=== PATIENT | male | born 1965 | race Caucasian/White ===

== ENCOUNTER 2022-04-08 13:20 | Inpatient (IN) ==
[2022-04-08] MEDS ORDERED: cefTRIAXone SODIUM 2,000 MG/70 ML BAG IV STA (14:05)
[2022-04-08] MEDS ORDERED: KETOROLAC TROMETHAMINE 15 MG/ML VIAL IV ONE (14:05)
[2022-04-08] MEDS ORDERED: SODIUM CHLORIDE 0.9% 1000ML 1,000 ML IV SCH (14:07)
--- NOTE | 2022-04-08 14:19 | Emergency Department Note ---
Impression & Plan Cellulitis of right lower extremity, Pain and swelling of right knee ED Provider Note CHIEF COMPLAINT: Right knee pain, redness and swelling HISTORY OF PRESENT ILLNESS: David Javed is a 56 year old male with no significant past medical history who presents to the Emergency Department for evaluation of worsening pain to his right knee with associated redness and swelling which initially started about 1 week ago and has since become worse since yesterday. At the time of onset, the patient first noticed some pain and swelling to his right knee. He denies sustaining any falls or injuries prior to the time of onset and did not notice any overlying wounds. The pain and swelling persisted for about a week before he then developed redness to his anterior knee. The patient did visit the [facility] ED yesterday and they attempted to aspirate his knee several times in multiple different places, however, he states that they were not able to draw any fluid out of it. The patient was thought to have a cellulitic infection and was discharged to home with Keflex. Since then, the patient has taken 5 doses of the Keflex, however, his knee has become much more red, swollen and painful. The redness and swelling has also extended up into his right thigh, down into his linder/calf and ankle. Currently, he rates his discomfort as a 9/10 which worsens with attempts of weight bearing activity. He is also unable to completely extend is knee due to the pain and swelling. He did take Tylenol and ibuprofen with minimal improvement of his symptoms. He does state that he has recently felt chilled but no measured fevers. No chest pain, shortness of breath, palpitations, abdominal pain, nausea, vomiting, or urinary symptoms. He has had diarrhea since starting the diarrhea yesterday. The patient denies history of previous skin or staph infections. REVIEW OF SYSTEMS: 10 systems were reviewed and were negative unless otherwise stated in HPI as above PHYSICAL EXAM: VITALS: Vitals are noted on the nurse's note and reviewed by myself. Vital signs stable. General: Resting in bed, no acute distress HEENT: Normocephalic, atraumatic, PERRL, EOMI, mucous membranes moist, oropharynx clear Neck: Supple, non-tender, ROM intact Resp: Good inspiratory effort on room air, lung sounds clear bilaterally CV: Regular rate and rhythm, normal S1-S2, peripheral pulses palpated Abd: Soft, non-distended, non-tender MSK/Integumentary: With attention to the LLE, moderate edema and erythema overlying the entire knee with lymphangitic erythema tracking into the thigh, down to to the linder/calf and ankle. Warm and tender to palpation. No palpable fluctuance. ROM of the knee limited secondary to pain and swelling. Able to move the toes, sensation and d/p pulse intact. Multiple punctate wounds about the kn ee consistent with recent attempts of arthrocentesis, otherwise no appreciable wounds. No other skin changes or outward signs of trauma, moving all other extremities without apparent pain or difficulty Neuro: Awake, alert and oriented x 3, interacting and answering questions appropriately Differential diagnosis includes musculoskeletal, cellulitis, septic joint, gout, Lyme disease, among others were considered. EMERGENCY DEPARTMENT COURSE: Physical exam and history were performed. Nursing triage notes, EMR, and medication list were personally reviewed. Patient appears to have worsening pain to his right knee with associated redness and swelling which initially started about 1 week ago and has since become worse with extension into his thigh and down into his linder/calf and ankle since yesterday following multiple attempts of arthrocentesis in the [facility] emergency department. He has been taking Keflex since yesterday without improvement of his symptoms. Additional history as described above. See physical exam as noted above. The patient was offered medications. IV access was established and he was given NSS 1 L and Toradol 15 mg. Labs were obtained and reviewed by myself as below. Of note, leukocytosis with a WBC of 15.53. No concern for anemia with hemoglobin 15.2. Electrolytes WNL. Renal indices stable. LFTs nondiagnostic. ESR was elevated at 35 and CRP elevated at 12.06. Lactate not elevated at 1.2. Procalcitonin not elevated at 0.07. Uric acid not elevated at 4.6. Lyme testing was negative. X-ray of the right knee was obtained and reviewed by radiologist myself as below. This did show soft tissue swelling without evidence of underlying bony abnormality. No joint effusion seen. Upon reevaluation, the patient was doing well. His exam findings are concerning for cellulitis with moderate edema and erythema over the knee with lymphangitic streaking tracking into the thigh, down to the linder/calf and ankle. Less concern for gout as his uric acid was not elevated and he does not have history of this. Lyme testing is also negative. Blood cultures were obtained prior to giving Rocephin 2 g and vancomycin 2,250 mg for treatment of the cellulitic infection. It is also possible that he has a septic joint given that multiple attempts were made to perform an arthrocentesis of his right knee while at the [facility] emergency department yesterday. I do feel that he would benefit from continued management in the hospital for additional IV antibiotics and possibly an orthopedic consult for further evaluation. I discussed this with the patient and he agreed with this. I then contacted Dr. De Jesus of the [facility] and she agreed to evaluate the patient. The patient verbalizes understanding agreement with the treatment plan as above. The chart was completed utilizing [employer] Voice Recognition Software. Grammatical errors, random word insertions, pronoun errors, and incomplete sentences are an occasional consequence of this system due to software limitations, ambient noise, and hardware issues. Any formal questions or concerns about the content, text, or information contained within the body of this dictation should be directly addressed to the provider for clarification. Past Med/Surg History Medical History Chronic allergic rhinitis Surgical History H/O vasectomy Family History (Updated 04/08/22 @ 19:37 by Kyrie De Jesus MD) Father Diabetes Heart disease Social History Smoking Status: Never smoker Hx Alcohol Use: Yes Alcohol type: beer Hx Substance Use: No Preferred Language: Maldivian Communication Ability: Effective Continuous Loft Operator Required: No Beliefs That Will Affect Care: None Current Living Situation: Spouse and Family Feels Safe at Home: Yes Assistive Devices: None Allergies Allergies Allergy/AdvReac Type Severity Reaction Status Date / Time aspirin AdvReac Intermediate BLOODY Verified 04/08/22 15:32 NOSES A CHILD Home Meds Home Medications Medication Instructions Recorded Confirmed albuterol sulfate 2.5 mg INHALATION Q6H PRN 04/08/22 04/08/22 cephalexin 500 mg capsule 500 mg PO QID 04/08/22 04/08/22 Results & Data (ED) Vital Signs Vital Signs - 24 hr 04/08/22 13:20 04/08/22 15:20 Temperature 36.4 C L Temperature Source Temporal Artery Scan Pulse Rate 98 H Pulse Rate [Right Finger] 89 Pulse Rhythm [Right Finger] Regular Pulse Strength [Right Finger] Normal Respiratory Rate 16 20 Respiratory Effort / Characteristics Non-Labored Spontaneous Respiratory Depth Normal Blood Pressure 124/78 Blood Pressure [Right Arm] 122/86 Blood Pressure Mean 93 Blood Pressure Mean [Right Arm] 98 Blood Pressure Position Sitting Pulse Oximetry 96 98 Oxygen Delivery Method Room Air Room Air Sepsis Recent Fever Within 48 Hours No Sepsis New/Unexplained Change in Mental Status No Sepsis Action Taken by Nursing No Action Required Laboratory Data Result diagrams: 04/08/22 14:20 04/08/22 14:20 Lab Results 04/08/22 04/08/22 04/08/22 Range/Units 14:20 14:20 14:20 WBC 15.53 H (4.8-10.8) K/uL RBC 4.86 (4.7-6.1) M/uL Hgb 15.2 (14.0-18.0) g/dL Hct 44.5 (42-52) % MCV 91.6 (80-100) fL MCH 31.3 (25-34) pg MCHC 34.2 (32-36) g/dL RDW Std Deviation 42.2 (36.4-46.3) fL RDW Coeff of Manuel 12.6 (11.5-14.5) % Plt Count 232 (130-400) K/uL MPV 11.6 H (7.4-10.4) fL Immature Gran % (Auto) 0.4 % Neut % (Auto) 71.1 % Lymph % (Auto) 11.7 % [place] % (Auto) 15.5 % Eos % (Auto) 1.0 % Baso % (Auto) 0.3 % Neut # (Auto) 11.05 H (1.4-6.5) K/uL Lymph # (Auto) 1.81 (1.2-3.4) K/uL [place] # (Auto) 2.40 H (0.11-0.59) K/uL Eos # (Auto) 0.16 (0-0.5) K/uL Baso # (Auto) 0.05 (0-0.2) K/uL Immature Gran # (Auto) 0.06 H (0.00-0.02) K/uL ESR 35 H (0-20) mm/hr Sodium 137 (136-145) mmol/L Potassium 3.7 (3.5-5.1) mmol/L Chloride 103 (98-107) mmol/L Carbon Dioxide 29 (21-32) mmol/L Anion Gap 5 (3-11) BUN 16 (6-23) mg/dl Creatinine 1.20 (0.6-1.4) mg/dl Est Cr Clr Drug Dosing 74.7 ml/min Est GFR ( Amer) 78.4 ml/min Est GFR (Non-Af Amer) 67.7 ml/min BUN/Creatinine Ratio 13.3 (10-20) Glucose 105 H (70-99(Fasting)) mg/dl Lactate (0.4-2.0) mmol/L Uric Acid (2.6-7.2) mg/dl Calcium 9.3 (8.5-10.1) mg/dl Total Bilirubin 1.0 (0.2-1.0) mg/dl AST 12 L (13-39) U/L ALT 15 (7-52) U/L Alkaline Phosphatase 67 (34-104) U/L C-Reactive Protein 12.06 H (0-0.5) mg/dl Total Protein 7.3 (6.0-8.3) gm/dl Albumin 4.0 (3.4-5.0) gm/dl Globulin 3.3 (2.5-4.0) gm/dl Albumin/Globulin Ratio 1.2 (0.9-2) Procalcitonin (0-0.5) ng/ml Lyme Disease IgG Ab (Negative) Lyme Disease IgM Ab (Negative) 04/08/22 04/08/22 04/08/22 Range/Units 14:20 14:20 14:20 WBC (4.8-10.8) K/uL RBC (4.7-6.1) M/uL Hgb (14.0-18.0) g/dL Hct (42-52) % MCV (80-100) fL MCH (25-34) pg MCHC (32-36) g/dL RDW Std Deviation (36.4-46.3) fL RDW Coeff of Manuel (11.5-14.5) % Plt Count (130-400) K/uL MPV (7.4-10.4) fL Immature Gran % (Auto) % Neut % (Auto) % Lymph % (Auto) % [place] % (Auto) % Eos % (Auto) % Baso % (Auto) % Neut # (Auto) (1.4-6.5) K/uL Lymph # (Auto) (1.2-3.4) K/uL [place] # (Auto) (0.11-0.59) K/uL Eos # (Auto) (0-0.5) K/uL Baso # (Auto) (0-0.2) K/uL Immature Gran # (Auto) (0.00-0.02) K/uL ESR (0-20) mm/hr Sodium (136-145) mmol/L Potassium (3.5-5.1) mmol/L Chloride (98-107) mmol/L Carbon Dioxide (21-32) mmol/L Anion Gap (3-11) BUN (6-23) mg/dl Creatinine (0.6-1.4) mg/dl Est Cr Clr Drug Dosing ml/min Est GFR ( Amer) ml/min Est GFR (Non-Af Amer) ml/min BUN/Creatinine Ratio (10-20) Glucose (70-99(Fasting)) mg/dl Lactate 1.2 (0.4-2.0) mmol/L Uric Acid 4.6 (2.6-7.2) mg/dl Calcium (8.5-10.1) mg/dl Total Bilirubin (0.2-1.0) mg/dl AST (13-39) U/L ALT (7-52) U/L Alkaline Phosphatase (34-104) U/L C-Reactive Protein (0-0.5) mg/dl Total Protein (6.0-8.3) gm/dl Albumin (3.4-5.0) gm/dl Globulin (2.5-4.0) gm/dl Albumin/Globulin Ratio (0.9-2) Procalcitonin 0.07 (0-0.5) ng/ml Lyme Disease IgG Ab (Negative) Lyme Disease IgM Ab (Negative) 04/08/22 Range/Units 14:20 WBC (4.8-10.8) K/uL RBC (4.7-6.1) M/uL Hgb (14.0-18.0) g/dL Hct (42-52) % MCV (80-100) fL MCH (25-34) pg MCHC (32-36) g/dL RDW Std Deviation (36.4-46.3) fL RDW Coeff of Manuel (11.5-14.5) % Plt Count (130-400) K/uL MPV (7.4-10.4) fL Immature Gran % (Auto) % Neut % (Auto) % Lymph % (Auto) % [place] % (Auto) % Eos % (Auto) % Baso % (Auto) % Neut # (Auto) (1.4-6.5) K/uL Lymph # (Auto) (1.2-3.4) K/uL [place] # (Auto) (0.11-0.59) K/uL Eos # (Auto) (0-0.5) K/uL Baso # (Auto) (0-0.2) K/uL Immature Gran # (Auto) (0.00-0.02) K/uL ESR (0-20) mm/hr Sodium (136-145) mmol/L Potassium (3.5-5.1) mmol/L Chloride (98-107) mmol/L Carbon Dioxide (21-32) mmol/L Anion Gap (3-11) BUN (6-23) mg/dl Creatinine (0.6-1.4) mg/dl Est Cr Clr Drug Dosing ml/min Est GFR ( Amer) ml/min Est GFR (Non-Af Amer) ml/min BUN/Creatinine Ratio (10-20) Glucose (70-99(Fasting)) mg/dl Lactate (0.4-2.0) mmol/L Uric Acid (2.6-7.2) mg/dl Calcium (8.5-10.1) mg/dl Total Bilirubin (0.2-1.0) mg/dl AST (13-39) U/L ALT (7-52) U/L Alkaline Phosphatase (34-104) U/L C-Reactive Protein (0-0.5) mg/dl Total Protein (6.0-8.3) gm/dl Albumin (3.4-5.0) gm/dl Globulin (2.5-4.0) gm/dl Albumin/Globulin Ratio (0.9-2) Procalcitonin (0-0.5) ng/ml Lyme Disease IgG Ab Negative (Negative) Lyme Disease IgM Ab Negative (Negative) Administered Medications Discontinued Medications Ceftriaxone Sodium (Rocephin) 2,000 mg in 70 mls @ 140 mls/hr IV NOW STA Stop: 04/08/22 14:34 Last Infusion: 04/08/22 16:15 Dose: 0 mls/hr Documented by: [id number] Admin: 04/08/22 14:46 Dose: 140 mls/hr Documented by: [id number] Sodium Chloride (Nss 1000ml) 1,000 mls @ 999 mls/hr IV .Q1H1M TORI Stop: 04/08/22 15:07 Last Infusion: 04/08/22 16:15 Dose: 0 mls/hr Documented by: [id number] Admin: 04/08/22 14:48 Dose: 999 mls/hr Documented by: [id number] Vancomycin HCl 2,250 mg/ (Sodium Chloride) 545 mls @ 200 mls/hr IV NOW ONE Stop: 04/08/22 19:17 Last Admin: 04/08/22 17:27 Dose: 200 mls/hr Documented by: [id number] Ketorolac Tromethamine (Ketorolac Tromethamine 15 Mg/Ml Vial) 15 mg IV NOW ONE Stop: 04/08/22 14:06 Last Admin: 04/08/22 14:46 Dose: 15 mg Documented by: [id number] Imaging Data Radiologist's Impression: Knee X-Ray 04/08/22 14:05 XR knee RT 3V CLINICAL HISTORY: infection TECHNIQUE: 3 views of the right knee were obtained. Comparison: None available at the time of this dictation. FINDINGS: There is no evidence of an acute fracture. Joint spaces are well-preserved. No joint effusion is seen. Soft tissue swelling is seen about the knee. IMPRESSION: Soft tissue swelling without evidence of underlying bony abnormality. ACT 112: Negative or not required by law. Electronically signed by: Juan J Ansari M.D. 04/08/2022 2:47 PM Discharge Plan Visit Data Chief Complaint: Infection Stated Complaint: INFECTION IN R LEG ED Provider: Jason Kimble ED Midlevel Provider: Domenico,Edie L. Discharge Problem: Cellulitis of right lower extremity, Pain and swelling of right knee Patient Disposition: Admitted As Inpatient Discharge Instructions Interventions: ED Discharge Assessment Last Done: 04/08/22 17:53
--- NOTE | 2022-04-08 14:48 | XRay Report ---
XR knee RT 3V CLINICAL HISTORY: infection TECHNIQUE: 3 views of the right knee were obtained. Comparison: None available at the time of this dictation. FINDINGS: There is no evidence of an acute fracture. Joint spaces are well-preserved. No joint effusion is seen . Soft tissue swelling is seen about the knee. IMPRESSION: Soft tissue swelling without evidence of underlying bony abnormality. ACT 112: Negative or not required by law. Electronically signed by: Juan J Ansari M.D. 04/08/2022 2:47 PM
[2022-04-08 15:04] LABS: Basophils # (auto) 0.05 K/uL (0-0.2); Basophils % (auto) 0.3 %; Eosinophils # (auto) 0.16 K/uL (0-0.5); Hematocrit (blood only) 44.5 % (42-52); Hemoglobin 15.2 g/dL (14.0-18.0); Immature Granulocytes # (auto) 0.06 K/uL (0.00-0.02); Immature Granulocytes % (auto) 0.4 %; Lymphocytes # (auto) 1.81 K/uL (1.2-3.4); Lymphocytes % (auto) 11.7 %; Mean Corpuscular Hemoglobin 31.3 pg (25-34); Mean Corpuscular Hgb Conc 34.2 g/dL (32-36); Mean Corpuscular Volume 91.6 fL (80-100); Mean Platelet Volume 11.6 fL (7.4-10.4); Monocytes % (auto) 15.5 %; Neutrophils # (auto) 11.05 K/uL (1.4-6.5); Neutrophils % (auto) 71.1 %; Platelet Count 232 K/uL (130-400); RDW Coefficient of Variation 12.6 % (11.5-14.5); RDW Standard Deviation 42.2 fL (36.4-46.3); Red Blood Count 4.86 M/uL (4.7-6.1); White Blood Count 15.53 K/uL (4.8-10.8)
[2022-04-08 15:18] LABS: Albumin Globulin Ratio 1.2 (0.9-2); BUN Creatinine Ratio 13.3 (10-20); C Reactive Protein 12.06 mg/dl (0-0.5); Calcium 9.3 mg/dl (8.5-10.1); Creatinine Clr Calc Pharmacy 74.7 ml/min; Est GFR (African American) 78.4 ml/min; Est GFR (Non-African American) 67.7 ml/min; Globulin 3.3 gm/dl (2.5-4.0); Potassium 3.7 mmol/L (3.5-5.1); Total Protein 7.3 gm/dl (6.0-8.3)
[2022-04-08] MEDS ORDERED: VANCOMYCIN HCL 2,250 MG in SODIUM CHLORIDE 0.9% 500 ML IV ONE (16:34)
[2022-04-08] MEDS ORDERED: VANCOMYCIN CONSULT ACTIVE PRN (16:39)
[2022-04-08 17:00] LABS: Lyme Ab IgG w/WB Rflx Negative (Negative); Lyme Ab IgM w/WB Rflx Negative (Negative)
[2022-04-08] MEDS ORDERED: ALBUTEROL 0.083% NEBU SOLN 3 ML VIAL INH PRN (18:17)
--- NOTE | 2022-04-08 18:37 | History & Physical Report ---
Date of Service April 08, 2022 Assessment & Plan (1) Cellulitis of right lower extremity: (2) Pain and swelling of right knee: Plan: Pain in right knee for about a week Erythema noted yesterday, difficulty with ambulation, and range of motion, bearing weight Presented in [facility], several attempts for arthrocentesis, dry tap Discharged on p.o. Keflex from there, erythema and pain worsening on Keflex X-ray here is negative for acute fracture, or joint effusion, only shows soft tissue swelling ESR and CRP elevated, 35 and 12, respectively WBC 15.5 K Blood culture pending Lyme panel negative Received Rocephin 2000 mg and vancomycin in the ED, will continue for now Follow cultures Discuss further with orthopedics Diarrhea -Patient reports several episodes of diarrhea, starting prior to his evaluation in [facility], and therefore prior to starting p.o. Keflex -We will obtain a stool PCR panel, and will start probiotics Admission and Anticipated Discharge Date Admission Date: April 08, 2022 History of Present Illness Chief Complaint: Pain, swelling and redness of R knee Primary Care Provider: NO PCP 56-year-old male, with history of chronic rhinitis, who presents with painful, red and swollen right knee. Patient reports having pain in his right knee for about a week, yesterday however he also noted redness. He also noted that he could not really extend his knee joint and had to limp when walking. Ambulation and moving his knee was somewhat painful. Therefore he presented to [facility]. There, they wanted to rule out septic arthritis and attempted arthrocentesis several times. Despite multiple attempts, they were not successful, and tap was dry. He was then discharged with p.o. Keflex. Unfortunately, despite taking Keflex, redness now extended up his inner thigh and down to his ankle. He continues to have pain, difficulty ambulating, and bearing weight. He reports feeling cold for past 2 days, however did not check his temperature at home. Denies any chest pain, shortness of breath, abdominal pain, nausea or vomiting. However he does report having diarrhea before he presented in [facility] (prior to starting p.o. Keflex). X-ray was repeated in the ED, which did not show any acute fracture, or joint effusion. It does show soft tissue swelling. In the ED, patient received 2000 mg of ceftriaxone and vancomycin. Allergies Allergy/AdvReac Type Severity Reaction Status Date / Time aspirin AdvReac Intermediate BLOODY Verified 04/08/22 15:32 NOSES A CHILD Home Medications Medication Instructions Recorded Confirmed Type albuterol sulfate 2.5 mg INHALATION Q6H PRN 04/08/22 04/08/22 History cephalexin 500 mg capsule 500 mg PO QID 04/08/22 04/08/22 History Past Med/Surg History Medical History (Updated 04/08/22 @ 20:11 by Edie Acuña PA-C) Chronic allergic rhinitis Surgical History (Updated 04/08/22 @ 19:36 by Kyrie De Jesus MD) H/O vasectomy Family History (Updated 04/08/22 @ 19:37 by Kyrie De Jesus MD) Father Diabetes Heart disease Social History Smoking Status: Never smoker Hx Alcohol Use: Yes Alcohol type: beer Hx Substance Use: No Preferred Language: [place] Communication Ability: Effective Bioinformatics Analyst Required: No Beliefs That Will Affect Care: None Current Living Situation: Spouse and Family Feels Safe at Home: Yes Assistive Devices: None Review of Systems Review of Systems: All systems reviewed & are unremarkable except as noted in HPI & below Physical Exam Constitutional: WD/WN, vitals as above Eyes: PERRL, conjunctivae normal, anicteric sclerae ENMT: external ear and nose normal, oropharynx normal Neck: normal visual inspection Respiratory: normal respiratory effort, lungs clear to auscultation Cardiovascular: RRR, no murmur, no edema Chest (Breasts): Chest: normal inspection of chest Gastrointestinal (Abdomen): normal bowel sounds, soft, nontender, no hepatosplenomegaly Musculoskeletal: Head/Neck/Chest: normocephalic, head atraumatic and neck supple Extremities: extremities normal to inspection (L normal, R - R knee edematous, erythematous, warm tender to palpation) Skin: no rashes, warm and dry (erythema of R inner leg and above patella) Neurologic: PERRL, EOMI, accommodation nl, no face palsy, no dysarthria Psychiatric: A+Ox3, euthymic affect Results & Data Results & Data ([facility]) Vital Signs (Past 12 Hours) Vital Signs Temp Pulse Pulse Resp BP BP Pulse Ox 04/08/22 17:47 84 20 122/78 98 04/08/22 15:20 89 20 122/86 98 04/08/22 13:20 36.4 C L 98 H 16 124/78 96 Laboratory Results 04/08/22 04/08/22 04/08/22 Range/Units 17:12 14:20 14:20 WBC (4.8-10.8) K/uL RBC (4.7-6.1) M/uL Hgb (14.0-18.0) g/dL Hct (42-52) % MCV (80-100) fL MCH (25-34) pg MCHC (32-36) g/dL RDW Std Deviation (36.4-46.3) fL RDW Coeff of Manuel (11.5-14.5) % Plt Count (130-400) K/uL MPV (7.4-10.4) fL Immature Gran % (Auto) % Neut % (Auto) % Lymph % (Auto) % [place] % (Auto) % Eos % (Auto) % Baso % (Auto) % Neut # (Auto) (1.4-6.5) K/uL Lymph # (Auto) (1.2-3.4) K/uL [place] # (Auto) (0.11-0.59) K/uL Eos # (Auto) (0-0.5) K/uL Baso # (Auto) (0-0.2) K/uL Immature Gran # (Auto) (0.00-0.02) K/uL ESR (0-20) mm/hr Sodium (136-145) mmol/L Potassium (3.5-5.1) mmol/L Chloride (98-107) mmol/L Carbon Dioxide (21-32) mmol/L Anion Gap (3-11) BUN (6-23) mg/dl Creatinine (0.6-1.4) mg/dl Est Cr Clr Drug Dosing ml/min Est GFR ( Amer) ml/min Est GFR (Non-Af Amer) ml/min BUN/Creatinine Ratio (10-20) Glucose (70-99(Fasting)) mg/dl Lactate (0.4-2.0) mmol/L Uric Acid 4.6 (2.6-7.2) mg/dl Calcium (8.5-10.1) mg/dl Total Bilirubin (0.2-1.0) mg/dl AST (13-39) U/L ALT (7-52) U/L Alkaline Phosphatase (34-104) U/L C-Reactive Protein (0-0.5) mg/dl Total Protein (6.0-8.3) gm/dl Albumin (3.4-5.0) gm/dl Globulin (2.5-4.0) gm/dl Albumin/Globulin Ratio (0.9-2) Procalcitonin (0-0.5) ng/ml Lyme Disease IgG Ab Negative (Negative) Lyme Disease IgM Ab Negative (Negative) SARS-CoV-2, RNA, NAAT NEGATIVE (NEGATIVE) 04/08/22 04/08/22 04/08/22 Range/Units 14:20 14:20 14:20 WBC (4.8-10.8) K/uL RBC (4.7-6.1) M/uL Hgb (14.0-18.0) g/dL Hct (42-52) % MCV (80-100) fL MCH (25-34) pg MCHC (32-36) g/dL RDW Std Deviation (36.4-46.3) fL RDW Coeff of Manuel (11.5-14.5) % Plt Count (130-400) K/uL MPV (7.4-10.4) fL Immature Gran % (Auto) % Neut % (Auto) % Lymph % (Auto) % [place] % (Auto) % Eos % (Auto) % Baso % (Auto) % Neut # (Auto) (1.4-6.5) K/uL Lymph # (Auto) (1.2-3.4) K/uL [place] # (Auto) (0.11-0.59) K/uL Eos # (Auto) (0-0.5) K/uL Baso # (Auto) (0-0.2) K/uL Immature Gran # (Auto) (0.00-0.02) K/uL ESR (0-20) mm/hr Sodium 137 (136-145) mmol/L Potassium 3.7 (3.5-5.1) mmol/L Chloride 103 (98-107) mmol/L Carbon Dioxide 29 (21-32) mmol/L Anion Gap 5 (3-11) BUN 16 (6-23) mg/dl Creatinine 1.20 (0.6-1.4) mg/dl Est Cr Clr Drug Dosing 74.7 ml/min Est GFR ( Amer) 78.4 ml/min Est GFR (Non-Af Amer) 67.7 ml/min BUN/Creatinine Ratio 13.3 (10-20) Glucose 105 H (70-99(Fasting)) mg/dl Lactate 1.2 (0.4-2.0) mmol/L Uric Acid (2.6-7.2) mg/dl Calcium 9.3 (8.5-10.1) mg/dl Total Bilirubin 1.0 (0.2-1.0) mg/dl AST 12 L (13-39) U/L ALT 15 (7-52) U/L Alkaline Phosphatase 67 (34-104) U/L C-Reactive Protein 12.06 H (0-0.5) mg/dl Total Protein 7.3 (6.0-8.3) gm/dl Albumin 4.0 (3.4-5.0) gm/dl Globulin 3.3 (2.5-4.0) gm/dl Albumin/Globulin Ratio 1.2 (0.9-2) Procalcitonin 0.07 (0-0.5) ng/ml Lyme Disease IgG Ab (Negative) Lyme Disease IgM Ab (Negative) SARS-CoV-2, RNA, NAAT (NEGATIVE) 04/08/22 04/08/22 Range/Units 14:20 14:20 WBC 15.53 H (4.8-10.8) K/uL RBC 4.86 (4.7-6.1) M/uL Hgb 15.2 (14.0-18.0) g/dL Hct 44.5 (42-52) % MCV 91.6 (80-100) fL MCH 31.3 (25-34) pg MCHC 34.2 (32-36) g/dL RDW Std Deviation 42.2 (36.4-46.3) fL RDW Coeff of Manuel 12.6 (11.5-14.5) % Plt Count 232 (130-400) K/uL MPV 11.6 H (7.4-10.4) fL Immature Gran % (Auto) 0.4 % Neut % (Auto) 71.1 % Lymph % (Auto) 11.7 % [place] % (Auto) 15.5 % Eos % (Auto) 1.0 % Baso % (Auto) 0.3 % Neut # (Auto) 11.05 H (1.4-6.5) K/uL Lymph # (Auto) 1.81 (1.2-3.4) K/uL [place] # (Auto) 2.40 H (0.11-0.59) K/uL Eos # (Auto) 0.16 (0-0.5) K/uL Baso # (Auto) 0.05 (0-0.2) K/uL Immature Gran # (Auto) 0.06 H (0.00-0.02) K/uL ESR 35 H (0-20) mm/hr Sodium (136-145) mmol/L Potassium (3.5-5.1) mmol/L Chloride (98-107) mmol/L Carbon Dioxide (21-32) mmol/L Anion Gap (3-11) BUN (6-23) mg/dl Creatinine (0.6-1.4) mg/dl Est Cr Clr Drug Dosing ml/min Est GFR ( Amer) ml/min Est GFR (Non-Af Amer) ml/min BUN/Creatinine Ratio (10-20) Glucose (70-99(Fasting)) mg/dl Lactate (0.4-2.0) mmol/L Uric Acid (2.6-7.2) mg/dl Calcium (8.5-10.1) mg/dl Total Bilirubin (0.2-1.0) mg/dl AST (13-39) U/L ALT (7-52) U/L Alkaline Phosphatase (34-104) U/L C-Reactive Protein (0-0.5) mg/dl Total Protein (6.0-8.3) gm/dl Albumin (3.4-5.0) gm/dl Globulin (2.5-4.0) gm/dl Albumin/Globulin Ratio (0.9-2) Procalcitonin (0-0.5) ng/ml Lyme Disease IgG Ab (Negative) Lyme Disease IgM Ab (Negative) SARS-CoV-2, RNA, NAAT (NEGATIVE) Diagnostic Findings R knee X-ray FINDINGS: There is no evidence of an acute fracture. Joint spaces are well-preserved. No joint effusion is seen. Soft tissue swelling is seen about the knee. IMPRESSION: Soft tissue swelling without evidence of underlying bony abnormality. Code Status & VTE Plan VTE Prophylaxis Plan VTE Prophylaxis will be ordered: Yes
--- NOTE | 2022-04-08 18:44 | Emergency Department Note ---
ED Visit Note Physician Evaluation Note: Patient was seen in conjunction with the physician nursing home assistant. Please see the physician nursing home assistant note for full details of the visit. I have personally evaluated and examined this patient. I performed a substantive portion of the patient visit including medical decision making and interpretation of diagnostic studies. On my examination the patient is in no acute distress, he does present with erythematous changes to the right lower extremity and right knee. No obvious joint effusion/swelling. Patient does have overlying erythema consistent with cellulitis. This is in the context of several recent attempts at arthrocentesis at an outside hospital, x-ray imaging here does not show any evidence of joint effusion. There is overlying cellulitic changes to the knee without obvious joint swelling, at this time I feel that the risk of repeat attempt at arthrocentesis will likely introduce infection. Patient does have a leukocytosis, he has some erythema streaking up the medial aspect of the lower extremity. He has a leukocytosis greater than 15,000, I feel that he would benefit from admission and initiation of IV antibiotics and likely orthopedic consultation. Patient was in agreement to the above plan, he was admitted in stable condition. I agree with assessment and plan of PARISH Kendall DO .
[2022-04-08] MEDS: ADVANCED PROBIOTIC 1250 MG CAPSULE PO SCH (21:37)
--- NOTE | 2022-04-08 21:53 | Pharmacy Report ---
Pharmacy Vanc AUC Short Note - Date of Service April 08, 2022 - Assessment & Plan Assessment 56 year old M receiving IV Vancomycin and Ceftriaxone for treatment of RLL cellulitis. Day # 1 of antimicrobial therapy. * Patient received Vancomycin 2250mg (~25mg/kg) IV x 1 as a loading dose in the ED * Most recent sCr = 1.2 mg/dL, CrCl ~75 mL/min. Estimated pharmacokinetics: * Ke ~0.11 mg/dL; t1/2 ~6.2 hrs Plan Vancomycin * AUC/MATT is the preferred PK/PD target for vancomycin * AUC guided dosing is effective and associated with decreased risk of nephrotoxicity compared to traditional trough targets * According to [employer], Vancomycin 1000mg IV q12 is estimated to result in trough level of 18.7 mcg/mL is predicted to achieve target AUC/MATT of 400-600 mg/L.hr and may be associated with a 15 % risk of nephrotoxicity * Trough level ordered for: 04/10/22 @ 0530 (early level and not reflective of steady state) Pharmacy will continue to follow and will adjust dose/frequency as necessary. Thank you.
--- NOTE | 2022-04-09 03:39 | Consultation Report ---
INPATIENT ORTHOPEDIC CONSULTATION Special attention to right knee infection. HISTORY OF PRESENT ILLNESS: This is a 56-year-old gentleman with progressive pain and swelling in th e knee. Symptoms began about a week ago with insidious onset. He denies a history of trauma. He wa s seen in [place] [facility] and multiple attempts at aspiration were done, one by an ort [facility] surgeon. They were unable to obtain any fluid off of the knee. He notes after that increasi ng redness extending up the thigh. ALLERGIES: ASPIRIN. MEDICATIONS: 1. He has been on Keflex for several days for the knee. 2. Albuterol. PAST MEDICAL HISTORY: Chronic allergic rhinitis. He denies history of gout. SOCIAL HISTORY: Occasional alcohol use. Does not smoke. PHYSICAL EXAMINATION: Right knee exam does show cellulitis and extending erythema approximately half way up the thigh and extending about 6 inches down below the knee. He has a fusion over the prepatel lar bursa and tenderness of the prepatellar bursa with bogginess. I can range his knee short arc mot ion without significant discomfort. When he gets extremes of flexion and extension, he does have rolo e mild discomfort. He has no evidence of an irritable joint. I do not palpate a joint effusion. I reviewed AP and lateral of the knee, there is no evidence of chondrocalcinosis, no evidence of acute fracture. I do not see obvious evidence of knee effusion on radiograph. No foreign body. LABORATORY DATA: Review of laboratory studies shows a normal uric acid level. White count 15.5, ESR 35, C-reactive protein 12.06. ASSESSMENT: A 56-year-old male with, 1. Right prepatellar bursitis. 2. Right knee cellulitis. PLAN: Clinically, I feel this most likely is prepatellar bursitis. RECOMMENDATIONS: For MRI to confirm prepatellar bursitis versus other abscess and evaluate for any e ffusion in the knee. I feel a septic knee joint is less likely given the minimal pain he has with ra nge of motion. The recommendation is to continue antibiotics as per the hospitalist service. Chente scottlow MRI results. He may eat currently, but will make him n.p.o. after midnight in case he requires I and D of the septic prepatellar bursitis. Job ID: [id number]
[2022-04-09] MEDS: VANCOMYCIN HCL 1,000 MG in SODIUM CHLORIDE 0.9% 250 ML IV SCH ×2 (06:03→18:09)
[2022-04-09 06:18] LABS: Hematocrit (blood only) 44.4 % (42-52); Hemoglobin 15.4 g/dL (14.0-18.0); Mean Corpuscular Hemoglobin 31.9 pg (25-34); Mean Corpuscular Hgb Conc 34.7 g/dL (32-36); Mean Corpuscular Volume 91.9 fL (80-100); Mean Platelet Volume 11.2 fL (7.4-10.4); Platelet Count 231 K/uL (130-400); RDW Coefficient of Variation 12.4 % (11.5-14.5); RDW Standard Deviation 42.1 fL (36.4-46.3); Red Blood Count 4.83 M/uL (4.7-6.1); White Blood Count 11.97 K/uL (4.8-10.8)
[2022-04-09 06:38] LABS: BUN Creatinine Ratio 14.4 (10-20); C Reactive Protein 13.42 mg/dl (0-0.5); Calcium 8.7 mg/dl (8.5-10.1); Creatinine Clr Calc Pharmacy 86.2 ml/min; Est GFR (African American) 93.2 ml/min; Est GFR (Non-African American) 80.5 ml/min; Potassium 4.1 mmol/L (3.5-5.1)
--- NOTE | 2022-04-09 07:18 | Hospitalist Progress Note ---
Date of Service April 09, 2022 Assessment & Plan (1) Cellulitis of right lower extremity: (2) Pain and swelling of right knee: Plan: Pain in right knee for about a week Erythema noted yesterday, difficulty with ambulation, and range of motion, bearing weight Presented in [place] ED, several attempts for arthrocentesis, dry tap Discharged on p.o. Keflex from there, erythema and pain worsening on Keflex X-ray here is negative for acute fracture, or joint effusion, only shows soft tissue swelling ESR and CRP elevated, 35 and 12, respectively WBC 15.5 K Blood culture pending Lyme panel negative Received Rocephin 2000 mg and vancomycin in the ED, will continue for now Follow cultures Discuss further with orthopedics Orthopedics consulted, MRI of right knee obtained IMPRESSION: 1. 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 2. Degeneration of the menisci with equivocal medial meniscal tear. 3. No acute ligamentous injury. 4. Nonspecific diffuse subcutaneous edema may represent cellulitis, venous stasis or lymphedema. 5. Prepatellar fluid collection measuring up to 4.6 cm is suggestive of bursitis. Sterility cannot be determined by imaging alone. 04/09 -patient also developed pain in his right calf today, which is new for him Will obtain Doppler of right lower extremity to rule out DVT Diarrhea -Patient reports several episodes of loose stools, starting prior to his evaluation in [place] ED, and therefore prior to starting p.o. Keflex -obtained a stool PCR panel - negative -c/w probiotics (3) Septic prepatellar bursitis of right knee: Admission and Anticipated Discharge Date Admission Date: April 08, 2022 Subjective Patient seen in follow-up of cellulitis/prepatellar bursitis of right knee Currently laying in bed, in no acute distress He says that he is feeling better, the redness of his right leg significantly decreased overnight on IV antibiotics However he developed right calf pain with movement, he reports this is new Denies any fevers, chills, chest pain, shortness of breath, abdominal pain Continues to have some loose stools, stool PCR panel is negative Orthopedics consulted, patient underwent MRI of right leg overnight Will obtain Doppler of right leg to rule out DVT Review of Systems Review of Systems: All systems reviewed & are unremarkable except as noted in Subjective Physical Exam Physical Exam: Constitutional:L WD/WN, vitals as a genny Eyes: PERRL, EOMI, conju nctivae normal, an icteric sclerae ENMT: external ear and n ose normal, oropha rynx normal Neck: normal visual insp ection Respiratory: normal respiratory effort, lungs brando ar to auscultation Cardiovascular:L RRR, no murmur, no edema Chest (Breasts): Chest: normal insp ection of chest Gastrointestinal ( Abdomen): normal bowel sound s, soft, nontender Musculoskeletal: Head/Neck/Chest: n ormocephalic, head atraumatic and ne ck supple Extremi ties: extremities LLE normal, RLE - R knee edematous, erythematous, warm tender to palpati on, erythema initi ally streaking up the inner thigh, n ow much improved) Skin: no rashes, warm an d dry (erythema of R inner leg and a genny patella - inn er thigh erythema reduced from previ ous exam) Neurologic: PERRL, EOMI,no fac e palsy, no dysart hria Psychiatric: A+Ox3, euthymic af fect Results & Data Results & Data ([facility]) Laboratory Results 04/09/22 04/09/22 04/09/22 Range/Units 05:53 05:53 05:53 WBC 11.97 H (4.8-10.8) K/uL RBC 4.83 (4.7-6.1) M/uL Hgb 15.4 (14.0-18.0) g/dL Hct 44.4 (42-52) % MCV 91.9 (80-100) fL MCH 31.9 (25-34) pg MCHC 34.7 (32-36) g/dL RDW Std Deviation 42.1 (36.4-46.3) fL RDW Coeff of Manuel 12.4 (11.5-14.5) % Plt Count 231 (130-400) K/uL MPV 11.2 H (7.4-10.4) fL Immature Gran % (Auto) % Neut % (Auto) % Lymph % (Auto) % Bartow % (Auto) % Eos % (Auto) % Baso % (Auto) % Neut # (Auto) (1.4-6.5) K/uL Lymph # (Auto) (1.2-3.4) K/uL Bartow # (Auto) (0.11-0.59) K/uL Eos # (Auto) (0-0.5) K/uL Baso # (Auto) (0-0.2) K/uL Immature Gran # (Auto) (0.00-0.02) K/uL ESR 37 H (0-20) mm/hr Sodium 138 (136-145) mmol/L Potassium 4.1 (3.5-5.1) mmol/L Chloride 108 H (98-107) mmol/L Carbon Dioxide 23 (21-32) mmol/L Anion Gap 7 (3-11) BUN 15 (6-23) mg/dl Creatinine 1.04 (0.6-1.4) mg/dl Est Cr Clr Drug Dosing 86.2 ml/min Est GFR ( Amer) 93.2 ml/min Est GFR (Non-Af Amer) 80.5 ml/min BUN/Creatinine Ratio 14.4 (10-20) Glucose 98 (70-99(Fasting)) mg/dl Lactate (0.4-2.0) mmol/L Uric Acid (2.6-7.2) mg/dl Calcium 8.7 (8.5-10.1) mg/dl Phosphorus 3.0 (2.5-4.9) mg/dl Magnesium 2.0 (1.7-2.4) mg/dl Total Bilirubin (0.2-1.0) mg/dl AST (13-39) U/L ALT (7-52) U/L Alkaline Phosphatase (34-104) U/L C-Reactive Protein 13.42 H (0-0.5) mg/dl Total Protein (6.0-8.3) gm/dl Albumin (3.4-5.0) gm/dl Globulin (2.5-4.0) gm/dl Albumin/Globulin Ratio (0.9-2) Procalcitonin (0-0.5) ng/ml Stl C. cayetanensis PCR Stool Rotavirus A PCR Stl Adenov F 40/41 PCR Stool Astrovirus (PCR) Stool Campylobacter PCR Stl C. diff Tox A/B PCR Stool Cryptosporidium PCR Stl E.coli Shiga Tox PCR Stl Enterotoxigenic E PCR Stool EAEC (PCR) Stl E. histolytica PCR Stool Giardia Lamblia PCR Stool Salmonella PCR Stool Sapovirus (PCR) Stl P. shigelloides PCR Stl Shigella/EIEC PCR St Y.enterocolitica PCR Stool Vibrio (PCR) Stl Vibrio cholerae PCR Stl Norovirus GI/GII PCR Lyme Disease IgG Ab (Negative) Lyme Disease IgM Ab (Negative) SARS-CoV-2, RNA, NAAT (NEGATIVE) 04/09/22 04/08/22 04/08/22 Range/Units 05:45 17:12 14:20 WBC (4.8-10.8) K/uL RBC (4.7-6.1) M/uL Hgb (14.0-18.0) g/dL Hct (42-52) % MCV (80-100) fL MCH (25-34) pg MCHC (32-36) g/dL RDW Std Deviation (36.4-46.3) fL RDW Coeff of Manuel (11.5-14.5) % Plt Count (130-400) K/uL MPV (7.4-10.4) fL Immature Gran % (Auto) % Neut % (Auto) % Lymph % (Auto) % Bartow % (Auto) % Eos % (Auto) % Baso % (Auto) % Neut # (Auto) (1.4-6.5) K/uL Lymph # (Auto) (1.2-3.4) K/uL Bartow # (Auto) (0.11-0.59) K/uL Eos # (Auto) (0-0.5) K/uL Baso # (Auto) (0-0.2) K/uL Immature Gran # (Auto) (0.00-0.02) K/uL ESR (0-20) mm/hr Sodium (136-145) mmol/L Potassium (3.5-5.1) mmol/L Chloride (98-107) mmol/L Carbon Dioxide (21-32) mmol/L Anion Gap (3-11) BUN (6-23) mg/dl Creatinine (0.6-1.4) mg/dl Est Cr Clr Drug Dosing ml/min Est GFR ( Amer) ml/min Est GFR (Non-Af Amer) ml/min BUN/Creatinine Ratio (10-20) Glucose (70-99(Fasting)) mg/dl Lactate (0.4-2.0) mmol/L Uric Acid (2.6-7.2) mg/dl Calcium (8.5-10.1) mg/dl Phosphorus (2.5-4.9) mg/dl Magnesium (1.7-2.4) mg/dl Total Bilirubin (0.2-1.0) mg/dl AST (13-39) U/L ALT (7-52) U/L Alkaline Phosphatase (34-104) U/L C-Reactive Protein (0-0.5) mg/dl Total Protein (6.0-8.3) gm/dl Albumin (3.4-5.0) gm/dl Globulin (2.5-4.0) gm/dl Albumin/Globulin Ratio (0.9-2) Procalcitonin (0-0.5) ng/ml Stl C. cayetanensis PCR Pending Stool Rotavirus A PCR Pending Stl Adenov F 40/41 PCR Pending Stool Astrovirus (PCR) Pending Stool Campylobacter PCR Pending Stl C. diff Tox A/B PCR Pending Stool Cryptosporidium PCR Pending Stl E.coli Shiga Tox PCR Pending Stl Enterotoxigenic E PCR Pending Stool EAEC (PCR) Pending Stl E. histolytica PCR Pending Stool Giardia Lamblia PCR Pending Stool Salmonella PCR Pending Stool Sapovirus (PCR) Pending Stl P. shigelloides PCR Pending Stl Shigella/EIEC PCR Pending St Y.enterocolitica PCR Pending Stool Vibrio (PCR) Pending Stl Vibrio cholerae PCR Pending Stl Norovirus GI/GII PCR Pending Lyme Disease IgG Ab Negative (Negative) Lyme Disease IgM Ab Negative (Negative) SARS-CoV-2, RNA, NAAT NEGATIVE (NEGATIVE) 04/08/22 04/08/22 04/08/22 Range/Units 14:20 14:20 14:20 WBC (4.8-10.8) K/uL RBC (4.7-6.1) M/uL Hgb (14.0-18.0) g/dL Hct (42-52) % MCV (80-100) fL MCH (25-34) pg MCHC (32-36) g/dL RDW Std Deviation (36.4-46.3) fL RDW Coeff of Manuel (11.5-14.5) % Plt Count (130-400) K/uL MPV (7.4-10.4) fL Immature Gran % (Auto) % Neut % (Auto) % Lymph % (Auto) % Bartow % (Auto) % Eos % (Auto) % Baso % (Auto) % Neut # (Auto) (1.4-6.5) K/uL Lymph # (Auto) (1.2-3.4) K/uL Bartow # (Auto) (0.11-0.59) K/uL Eos # (Auto) (0-0.5) K/uL Baso # (Auto) (0-0.2) K/uL Immature Gran # (Auto) (0.00-0.02) K/uL ESR (0-20) mm/hr Sodium (136-145) mmol/L Potassium (3.5-5.1) mmol/L Chloride (98-107) mmol/L Carbon Dioxide (21-32) mmol/L Anion Gap (3-11) BUN (6-23) mg/dl Creatinine (0.6-1.4) mg/dl Est Cr Clr Drug Dosing ml/min Est GFR ( Amer) ml/min Est GFR (Non-Af Amer) ml/min BUN/Creatinine Ratio (10-20) Glucose (70-99(Fasting)) mg/dl Lactate 1.2 (0.4-2.0) mmol/L Uric Acid 4.6 (2.6-7.2) mg/dl Calcium (8.5-10.1) mg/dl Phosphorus (2.5-4.9) mg/dl Magnesium (1.7-2.4) mg/dl Total Bilirubin (0.2-1.0) mg/dl AST (13-39) U/L ALT (7-52) U/L Alkaline Phosphatase (34-104) U/L C-Reactive Protein (0-0.5) mg/dl Total Protein (6.0-8.3) gm/dl Albumin (3.4-5.0) gm/dl Globulin (2.5-4.0) gm/dl Albumin/Globulin Ratio (0.9-2) Procalcitonin 0.07 (0-0.5) ng/ml Stl C. cayetanensis PCR Stool Rotavirus A PCR Stl Adenov F PCR Stool Astrovirus (PCR) Stool Campylobacter PCR Stl C. diff Tox A/B PCR Stool Cryptosporidium PCR Stl E.coli Shiga Tox PCR Stl Enterotoxigenic E PCR Stool EAEC (PCR) Stl E. histolytica PCR Stool Giardia Lamblia PCR Stool Salmonella PCR Stool Sapovirus (PCR) Stl P. shigelloides PCR Stl Shigella/EIEC PCR St Y.enterocolitica PCR Stool Vibrio (PCR) Stl Vibrio cholerae PCR Stl Norovirus GI/GII PCR Lyme Disease IgG Ab (Negative) Lyme Disease IgM Ab (Negative) SARS-CoV-2, RNA, NAAT (NEGATIVE) 04/08/22 04/08/22 04/08/22 Range/Units 14:20 14:20 14:20 WBC 15.53 H (4.8-10.8) K/uL RBC 4.86 (4.7-6.1) M/uL Hgb 15.2 (14.0-18.0) g/dL Hct 44.5 (42-52) % MCV 91.6 (80-100) fL MCH 31.3 (25-34) pg MCHC 34.2 (32-36) g/dL RDW Std Deviation 42.2 (36.4-46.3) fL RDW Coeff of Manuel 12.6 (11.5-14.5) % Plt Count 232 (130-400) K/uL MPV 11.6 H (7.4-10.4) fL Immature Gran % (Auto) 0.4 % Neut % (Auto) 71.1 % Lymph % (Auto) 11.7 % Bartow % (Auto) 15.5 % Eos % (Auto) 1.0 % Baso % (Auto) 0.3 % Neut # (Auto) 11.05 H (1.4-6.5) K/uL Lymph # (Auto) 1.81 (1.2-3.4) K/uL [place]ow # (Auto) 2.40 H (0.11-0.59) K/uL Eos # (Auto) 0.16 (0-0.5) K/uL Baso # (Auto) 0.05 (0-0.2) K/uL Immature Gran # (Auto) 0.06 H (0.00-0.02) K/uL ESR 35 H (0-20) mm/hr Sodium 137 (136-145) mmol/L Potassium 3.7 (3.5-5.1) mmol/L Chloride 103 (98-107) mmol/L Carbon Dioxide 29 (21-32) mmol/L Anion Gap 5 (3-11) BUN 16 (6-23) mg/dl Creatinine 1.20 (0.6-1.4) mg/dl Est Cr Clr Drug Dosing 74.7 ml/min Est GFR ( Amer) 78.4 ml/min Est GFR (Non-Af Amer) 67.7 ml/min BUN/Creatinine Ratio 13.3 (10-20) Glucose 105 H (70-99(Fasting)) mg/dl Lactate (0.4-2.0) mmol/L Uric Acid (2.6-7.2) mg/dl Calcium 9.3 (8.5-10.1) mg/dl Phosphorus (2.5-4.9) mg/dl Magnesium (1.7-2.4) mg/dl Total Bilirubin 1.0 (0.2-1.0) mg/dl AST 12 L (13-39) U/L ALT 15 (7-52) U/L Alkaline Phosphatase 67 (34-104) U/L C-Reactive Protein 12.06 H (0-0.5) mg/dl Total Protein 7.3 (6.0-8.3) gm/dl Albumin 4.0 (3.4-5.0) gm/dl Globulin 3.3 (2.5-4.0) gm/dl Albumin/Globulin Ratio 1.2 (0.9-2) Procalcitonin (0-0.5) ng/ml Stl C. cayetanensis PCR Stool Rotavirus A PCR Stl Adenov F 40/41 PCR Stool Astrovirus (PCR) Stool Campylobacter PCR Stl C. diff Tox A/B PCR Stool Cryptosporidium PCR Stl E.coli Shiga Tox PCR Stl Enterotoxigenic E PCR Stool EAEC (PCR) Stl E. histolytica PCR Stool Giardia Lamblia PCR Stool Salmonella PCR Stool Sapovirus (PCR) Stl P. shigelloides PCR Stl Shigella/EIEC PCR St Y.enterocolitica PCR Stool Vibrio (PCR) Stl Vibrio cholerae PCR Stl Norovirus GI/GII PCR Lyme Disease IgG Ab (Negative) Lyme Disease IgM Ab (Negative) SARS-CoV-2, RNA, NAAT (NEGATIVE) Medications Administered Current Inpatient Medications Acetaminophen (Acetaminophen 325 Mg Tab) 650 mg PO Q4H PRN PRN Reason: pain/fever Stop: 05/08/22 17:02 Albuterol (Albuterol 0.083% Nebu Soln 3 Ml Vial) 2.5 mg INH Q6H PRN; Protocol PRN Reason: Shortness Of Breath Or Wheezing Stop: 05/08/22 18:16 Ceftriaxone Sodium (Rocephin) 2,000 mg in 70 mls @ 140 mls/hr IV Q24H TORI; Protocol Stop: 04/15/22 13:59 Vancomycin HCl 1,000 mg/ (Sodium Chloride) 270 mls @ 200 mls/hr IV Q12H TORI Stop: 04/15/22 05:59 Last Admin: 04/09/22 06:03 Dose: 200 mls/hr Documented by: Lactobacillus Acidophilus (Advanced Probiotic 1250 Mg Capsule) 2 cap PO DAILY TORI Stop: 05/08/22 20:29 Last Admin: 04/08/22 21:37 Dose: 2 cap Documented by: Miscellaneous Information (Vancomycin Consult Active) 1 ea N/A UD PRN PRN Reason: Consult Stop: 05/08/22 16:38 Oxycodone HCl (Oxycodone Hcl Ir 5 Mg Tab (Immediate Release)) 5 mg PO Q4H PRN PRN Reason: Pain Stop: 04/22/22 20:22
[2022-04-09 08:35] LABS: Adenovirus F 40/41 PCR Not Detected (NotDetected); Astrovirus PCR Not Detected (NotDetected); Campylobacter PCR Not Detected (NotDetected); Clostridium diff Toxin A/B PCR Not Detected (NotDetected); Cryptosporidium PCR Not Detected (NotDetected); Cyclospora cayetanensis PCR Not Detected (NotDetected); Entamoeba histolytica PCR Not Detected (NotDetected); Enteroaggregative E.coli(EAEC) Not Detected (NotDetected); Enteropathogenic E.coli (EPEC) Not Detected (NotDetected); Enterotoxigenic E.coli (ETEC) Not Detected (NotDetected); Giardia lamblia PCR Not Detected (NotDetected); Norovirus GI/GII PCR Not Detected (NotDetected); Plesiomonas shigelloides PCR Not Detected (NotDetected); Rotavirus A PCR Not Detected (NotDetected); Salmonella PCR Not Detected (NotDetected); Sapovirus PCR Not Detected (NotDetected); Shiga-like Toxin E.coli (STEC) Not Detected (NotDetected); Shigella/Enteroinvasive E.coli Not Detected (NotDetected); Vibrio cholerae PCR Not Detected (NotDetected); Vibrio species PCR Not Detected (NotDetected); Yersinia enterocolitica PCR Not Detected (NotDetected)
--- NOTE | 2022-04-09 09:37 | Magnetic Resonance Report ---
MR knee RT wo con CLINICAL HISTORY: 56 years-old Male with abscess v prepatellar bursitis. COMPARISON: Right knee radiographs 04/08/2022. TECHNIQUE: Multiplanar, multisequence MRI of the right knee was performed without intravenous contras t. FINDINGS: MENISCI: Mild degeneration of the posterior horn lateral meniscus with possible tearing of the periph eral red zone fibers. There is degeneration of the posterior horn and junction medial meniscus with e quivocal posterior junction horizontal undersurface tearing. No displaced fragment or parameniscal cy st identified. CRUCIATE LIGAMENTS: The anterior and posterior cruciate ligaments appear intact. Thickening of the po sterior cruciate ligament is suggestive of chronic sprain. COLLATERAL LIGAMENTS: The popliteus tendon, biceps femoris tendon, fibular collateral ligament and il iotibial band are intact. The superficial and deep components of the medial collateral ligament are intact. EXTENSOR MECHANISM: The quadriceps and patellar tendons are intact. There is moderate thickening with irregularity of the lateral patellofemoral ligament and retinaculum compatible with chronic sprains. The medial patellofemoral ligament and retinaculum appear intact. KNEE JOINT: Trace joint effusion. No intra-articular loose body. There is mild tricompartmental gini nal spurring without significant joint space narrowing or high-grade chondromalacia. There is low to intermediate grade chondral fissuring involving the medial aspect of the lateral tibial plateau. BONE MARROW: The bone marrow signal is age appropriate. No fracture, marrow edema, or marrow replacin g process. SOFT TISSUES: There is moderate to extensive diffuse subcutaneous edema of the knee extending into th e lower leg and distal thigh. There is a prepatellar fluid collection which measures 4.6 x 1.0 x 4.5 cm in transverse, AP and craniocaudal dimensions. IMPRESSION: 1. Minimal tricompartmental osteoarthritis with low to intermediate grade chondromalacia of the later al compartment. 2. Degeneration of the menisci with equivocal medial meniscal tear. 3. No acute ligamentous injury. 4. Nonspecific diffuse subcutaneous edema may represent cellulitis, venous stasis or lymphedema. 5. Prepatellar fluid collection measuring up to 4.6 cm is suggestive of bursitis. Sterility cannot be determined by imaging alone. ACT 112: Negative or not required by law. The above report was generated using voice recognition software. It may contain grammatical, syntax o r spelling errors. Dictated: 04/09/2022 8:48 AM Transcribed: 04/09/2022 9:16 AM Susan [id number] [email or web address] Electronically signed by: Jayden Pandey M.D. 04/09/2022 9:36 AM
[2022-04-09] MEDS: ADVANCED PROBIOTIC 1250 MG CAPSULE PO SCH (10:22)
[2022-04-09] MEDS: cefTRIAXone SODIUM 2,000 MG/70 ML BAG IV SCH (14:20)
[2022-04-09] MEDS: oxyCODONE HCL IR 5 MG TAB (IMMEDIATE RELEASE) PO PRN (15:35)
--- NOTE | 2022-04-09 18:26 | Orthopedic Progress Note ---
Date of Service April 09, 2022 Assessment & Plan (1) Septic prepatellar bursitis of right knee: Plan: As noted, MRI reviewed noting 4 x 1 x 4 cm fluid collection in the prepatellar bursa area which can be appreciated on physical exam. Patient has had for aspiration attempts of what sounded like was of his knee joint in [facility]. These apparently were all dry taps. I discussed it with the patient about aspirating his prepatellar bursa area. Patient understands risks involved with possibility of but not all inclusive further infection, and/or bleeding, swelling, decreased range of motion of the knee. Patient was in agreement to undergo aspiration. Aspiration sites of the prepatellar bursa of the right knee was chosen and swabbed with 3 alcohol swabs and 3 Betadine swabs and let the dry. At that time, a 20-gauge needle was inserted into the prepatellar bursa and 5 cc of grossly purulent alicea-colored fluid was aspirated from the bursa. The needle was removed and pressure was applied to the aspiration point for 30 seconds. A Band-Aid was placed over the aspiration site. Patient tolerated the procedure well. Fluid aspirate will be sent for cell count and culture. Patient will require a irrigation debridement of his prepatellar bursa. We will add him onto the OR schedule tomorrow. Patient will be n.p.o. after midnight. Admission and Anticipated Discharge Date Admission Date: April 08, 2022 Subjective Patient seen at the bedside this evening. States that his leg looks a little better as far as the erythema that was tracking up his thigh. He states that his knee looks about the same. He is able to bend it but still has moderate pain on palpation over the patella and prepatellar area. He is also having calf pain in the calf which he states started earlier. Apparently an ultrasound has been ordered by medicine service. Physical Exam Physical Exam: On examination, patient continues with moderate erythema over the patellar area and in the prepatellar area. He no longer has any striations going up the thigh. He has full extension of the knee and can flex the knee to approximate 100 degrees. Neurovascular is intact. He also complains of calf pain now of which started earlier in the day. Homans test is positive but he does not have point tenderness and there are no palpable cords. He has pain throughout the calf that radiates down to the ankle. On palpation of the prepatellar area, an obvious fluid collection can be felt. MRI was reviewed and did show an obvious fluid collection. After discussing with the patient, I asked if I could do a an aspiration of the prepatellar bursa. Results & Data ([facility]) Vital Signs (Past 12 Hours) Vital Signs Temp Pulse Resp BP Pulse Ox 04/09/22 15:31 36.9 C 92 H 18 132/82 93 04/09/22 07:25 37.2 C 90 18 141/88 H 96 Laboratory Results 04/09/22 04/09/22 04/09/22 Range/Units 05:53 05:53 05:53 WBC 11.97 H (4.8-10.8) K/uL RBC 4.83 (4.7-6.1) M/uL Hgb 15.4 (14.0-18.0) g/dL Hct 44.4 (42-52) % MCV 91.9 (80-100) fL MCH 31.9 (25-34) pg MCHC 34.7 (32-36) g/dL RDW Std Deviation 42.1 (36.4-46.3) fL RDW Coeff of Manuel 12.4 (11.5-14.5) % Plt Count 231 (130-400) K/uL MPV 11.2 H (7.4-10.4) fL ESR 37 H (0-20) mm/hr Sodium 138 (136-145) mmol/L Potassium 4.1 (3.5-5.1) mmol/L Chloride 108 H (98-107) mmol/L Carbon Dioxide 23 (21-32) mmol/L Anion Gap 7 (3-11) BUN 15 (6-23) mg/dl Creatinine 1.04 (0.6-1.4) mg/dl Est Cr Clr Drug Dosing 86.2 ml/min Est GFR ( Amer) 93.2 ml/min Est GFR (Non-Af Amer) 80.5 ml/min BUN/Creatinine Ratio 14.4 (10-20) Glucose 98 (70-99(Fasting)) mg/dl Calcium 8.7 (8.5-10.1) mg/dl Phosphorus 3.0 (2.5-4.9) mg/dl Magnesium 2.0 (1.7-2.4) mg/dl C-Reactive Protein 13.42 H (0-0.5) mg/dl Stl C. cayetanensis PCR (NotDetected) Stool Rotavirus A PCR (NotDetected) Stl Adenov F 40 PCR (NotDetected) Stool Astrovirus (PCR) (NotDetected) Stool Campylobacter PCR (NotDetected) Stl C. diff Tox A/B PCR (NotDetected) Stool Cryptosporidium PCR (NotDetected) Stl E.coli Shiga Tox PCR (NotDetected) Stl Enterotoxigenic E PCR (NotDetected) Stool EPEC (PCR) (NotDetected) Stool EAEC (PCR) (NotDetected) Stl E. histolytica PCR (NotDetected) Stool Giardia Lamblia PCR (NotDetected) Stool Salmonella PCR (NotDetected) Stool Sapovirus (PCR) (NotDetected) Stl P. shigelloides PCR (NotDetected) Stl Shigella/EIEC PCR (NotDetected) St Y.enterocolitica PCR (NotDetected) Stool Vibrio (PCR) (NotDetected) Stl Vibrio cholerae PCR (NotDetected) Stl Norovirus GI/GII PCR (NotDetected) 04/09/22 Range/Units 05:45 WBC (4.8-10.8) K/uL RBC (4.7-6.1) M/uL Hgb (14.0-18.0) g/dL Hct (42-52) % MCV (80-100) fL MCH (25-34) pg MCHC (32-36) g/dL RDW Std Deviation (36.4-46.3) fL RDW Coeff of Manuel (11.5-14.5) % Plt Count (130-400) K/uL MPV (7.4-10.4) fL ESR (0-20) mm/hr Sodium (136-145) mmol/L Potassium (3.5-5.1) mmol/L Chloride (98-107) mmol/L Carbon Dioxide (21-32) mmol/L Anion Gap (3-11) BUN (6-23) mg/dl Creatinine (0.6-1.4) mg/dl Est Cr Clr Drug Dosing ml/min Est GFR ( Amer) ml/min Est GFR (Non-Af Amer) ml/min BUN/Creatinine Ratio (10-20) Glucose (70-99(Fasting)) mg/dl Calcium (8.5-10.1) mg/dl Phosphorus (2.5-4.9) mg/dl Magnesium (1.7-2.4) mg/dl C-Reactive Protein (0-0.5) mg/dl Stl C. cayetanensis PCR Not Detected (NotDetected) Stool Rotavirus A PCR Not Detected (NotDetected) Stl Adenov F 40/41 PCR Not Detected (NotDetected) Stool Astrovirus (PCR) Not Detected (NotDetected) Stool Campylobacter PCR Not Detected (NotDetected) Stl C. diff Tox A/B PCR Not Detected (NotDetected) Stool Cryptosporidium PCR Not Detected (NotDetected) Stl E.coli Shiga Tox PCR Not Detected (NotDetected) Stl Enterotoxigenic E PCR Not Detected (NotDetected) Stool EPEC (PCR) Not Detected (NotDetected) Stool EAEC (PCR) Not Detected (NotDetected) Stl E. histolytica PCR Not Detected (NotDetected) Stool Giardia Lamblia PCR Not Detected (NotDetected) Stool Salmonella PCR Not Detected (NotDetected) Stool Sapovirus (PCR) Not Detected (NotDetected) Stl P. shigelloides PCR Not Detected (NotDetected) Stl Shigella/EIEC PCR Not Detected (NotDetected) St Y.enterocolitica PCR Not Detected (NotDetected) Stool Vibrio (PCR) Not Detected (NotDetected) Stl Vibrio cholerae PCR Not Detected (NotDetected) Stl Norovirus GI/GII PCR Not Detected (NotDetected) Diagnostic Findings Patient:GRANT ELY Admit Date:04/08/22 MR#:[id number] Address1:[address] Ac[address] ID:[id number] Address2: Date:1965 [facility] Zip: [place] [address] Age:56 Location: Sex: Room/Bed:[facility] Att Phy:Kyrie De Jesus MD Diagnosis:CELLULITIS Jennie Phy:PCP,NO Service Date:04/08/22 [facility] Phy: Interpreting Phy:Jayden PandeyAdmit Phy:Kyrie De Jesus MD Ordering Phy:Ari Conley MD cc: ~ MR knee RT wo con CLINICAL HISTORY: 56 years-old Male with abscess v prepatellar bursitis. COMPARISON: Right knee radiographs 04/08/2022. TECHNIQUE: Multiplanar, multisequence MRI of the right knee was performed without intravenous contrast. FINDINGS: MENISCI: Mild degeneration of the posterior horn lateral meniscus with possible tearing of the peripheral red zone fibers. There is degeneration of the posterior horn and junction medial meniscus with equivocal posterior junction horizontal undersurface tearing. No displaced fragment or parameniscal cyst identified. CRUCIATE LIGAMENTS: The anterior and posterior cruciate ligaments appear intact. Thickening of the posterior cruciate ligament is suggestive of chronic sprain. COLLATERAL LIGAMENTS: The popliteus tendon, biceps femoris tendon, fibular collateral ligament and iliotibial band are intact. The superficial and deep components of the medial collateral ligament are intact. EXTENSOR MECHANISM: The quadriceps and patellar tendons are intact. There is moderate thickening with irregularity of the lateral patellofemoral ligament and retinaculum compatible with chronic sprains. The medial patellofemoral ligament and retinaculum appear intact. KNEE JOINT: Trace joint effusion. No intra-articular loose body. There is mild tricompartmental marginal spurring without significant joint space narrowing or high-grade chondromalacia. There is low to intermediate grade chondral fissuring involving the medial aspect of the lateral tibial plateau. BONE MARROW: The bone marrow signal is age appropriate. No fracture, marrow edema, or marrow replacing process. SOFT TISSUES: There is moderate to extensive diffuse subcutaneous edema of the knee extending into the lower leg and distal thigh. There is a prepatellar fluid collection which measures 4.6 x 1.0 x 4.5 cm in transverse, AP and craniocaudal dimensions. IMPRESSION: 1. 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 2. Degeneration of the menisci with equivocal medial meniscal tear. 3. No acute ligamentous injury. 4. Nonspecific diffuse subcutaneous edema may represent cellulitis, venous stasis or lymphedema. 5. Prepatellar fluid collection measuring up to 4.6 cm is suggestive of bursitis. Sterility cannot be determined by imaging alone. ACT 112: Negative or not required by law. The above report was generated using voice recognition software. It may contain grammatical, syntax or spelling errors. Dictated: 04/09/2022 8:48 AM Transcribed: 04/09/2022 9:16 AM Susan [id number] SERGEY_Love
--- NOTE | 2022-04-09 20:28 | Ultrasound Report ---
ULTRASOUND RIGHT LOWER EXTREMITY VENOUS CLINICAL HISTORY: Right leg pain. COMPARISON STUDY: No priors. TECHNIQUE: Real-time, grayscale, and color Doppler sonography of the deep veins of the right lower ex tremity was performed from the inguinal crease to the calf. Compression and augmentation were utilize d. FINDINGS: There is no sonographic evidence of deep venous thrombosis identified in the right lower ex tremity. The common femoral, superficial femoral, and popliteal veins are patent and normally wilfrido sible. The greater saphenous vein and the profunda femoris vein at the junction with the common femor al vein are clear. The visualized calf veins are patent. There are prominent right inguinal lymph nod es. IMPRESSION: 1. There is no sonographic evidence of deep venous thrombosis identified in the right lower extremity . 2. Prominent right inguinal lymph nodes are nonspecific and may be reactive. Clinical correlation heidi l be required. ACT 112: Negative or not required by law. Electronically signed by: Erick Rodríguez M.D. 04/09/2022 8:26 PM
[2022-04-10] MEDS ORDERED: VANCOMYCIN LEVEL ONE (05:30)
[2022-04-10] MEDS: VANCOMYCIN HCL 1,000 MG in SODIUM CHLORIDE 0.9% 250 ML IV SCH ×3 (05:46→22:26)
[2022-04-10 08:15] LABS: Hematocrit (blood only) 45.1 % (42-52); Hemoglobin 15.5 g/dL (14.0-18.0); Mean Corpuscular Hemoglobin 31.4 pg (25-34); Mean Corpuscular Hgb Conc 34.4 g/dL (32-36); Mean Corpuscular Volume 91.5 fL (80-100); Mean Platelet Volume 11.7 fL (7.4-10.4); Platelet Count 254 K/uL (130-400); RDW Coefficient of Variation 12.5 % (11.5-14.5); RDW Standard Deviation 42.2 fL (36.4-46.3); Red Blood Count 4.93 M/uL (4.7-6.1)
[2022-04-10 08:37] LABS: BUN Creatinine Ratio 16.2 (10-20); Calcium 8.8 mg/dl (8.5-10.1); Creatinine Clr Calc Pharmacy 80.8 ml/min; Est GFR (African American) 86.2 ml/min; Est GFR (Non-African American) 74.4 ml/min; Magnesium 2.1 mg/dl (1.7-2.4); Phosphorus 3.6 mg/dl (2.5-4.9); Potassium 4.2 mmol/L (3.5-5.1)
--- NOTE | 2022-04-10 08:40 | Hospitalist Progress Note ---
Date of Service April 10, 2022 Assessment & Plan (1) Cellulitis of right lower extremity: (2) Pain and swelling of right knee: Plan: Pain in right knee for about a week Erythema noted 2 days prior to admission, difficulty with ambulation, and range of motion, bearing weight Presented in [place] ED day prior to admission, several attempts for arthrocentesis, dry tap Discharged on p.o. Keflex from there, erythema and pain worsening on Keflex X-ray here is negative for acute fracture, or joint effusion, only shows soft tissue swelling ESR and CRP elevated, 35 and 12, respectively WBC 15.5 K Blood culture pending Lyme panel negative Received Rocephin 2000 mg and vancomycin in the ED, will continue for now Follow cultures Discuss further with orthopedics Orthopedics consulted, MRI of right knee obtained IMPRESSION: 1. 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 2. Degeneration of the menisci with equivocal medial meniscal tear. 3. No acute ligamentous injury. 4. Nonspecific diffuse subcutaneous edema may represent cellulitis, venous stasis or lymphedema. 5. Prepatellar fluid collection measuring up to 4.6 cm is suggestive of bursitis. Sterility cannot be determined by imaging alone. Patient underwent aspiration of prepatellar bursa on 04/09 Cultures from the aspiration positive for gram-positive cocci, final culture pending Plan for I&D today, on 04/10 04/09 -patient also developed pain in his right calf , obtained Doppler of right lower extremity - negat. for DVT Diarrhea -Patient reports several episodes of loose stools, starting prior to his evaluation in [place] ED, and therefore prior to starting p.o. Keflex -obtained a stool PCR panel - negative -c/w probiotics (3) Septic prepatellar bursitis of right knee: Admission and Anticipated Discharge Date Admission Date: April 10, 2022 Subjective Patient seen in follow-up of cellulitis/prepatellar bursitis of right knee Last evening underwent aspiration of prepatellar bursa Doppler obtained last evening, and negative for DVT Currently laying in bed, in no acute distress He says that he is feeling better, the redness of his right leg significantly decreased on IV antibiotics Denies any fevers, chills, chest pain, shortness of breath, abdominal pain Review of Systems Review of Systems: All systems reviewed & are unremarkable except as noted in Subjective Physical Exam Physical Exam: Constitutional:L WD/WN, vitals as a genny Eyes: PERRL, EOMI, conju nctivae normal, an icteric sclerae ENMT: external ear and n ose normal, oropha rynx normal Neck: normal visual insp ection Respiratory: normal respiratory effort, lungs brando ar to auscultation Cardiovascular:L RRR, no murmur, no edema Chest (Breasts): Chest: normal insp ection of chest Gastrointestinal ( Abdomen): normal bowel sound s, soft, nontender Musculoskeletal: Head/Neck/Chest: n ormocephalic, head atraumatic and ne ck supple Extremi ties: extremities LLE normal, RLE - R knee edematous, erythematous, warm tender to palpati on, erythema initi ally streaking up the inner thigh, n ow much improved) Skin: no rashes, warm an d dry (erythema of R inner leg and a genny patella - inn er thigh erythema reduced from previ ous exam) Neurologic: PERRL, EOMI,no fac e palsy, no dysart hria Psychiatric: A+Ox3, euthymic af fect Results & Data Results & Data ([facility]) Vital Signs (Past 12 Hours) Vital Signs Temp Pulse Resp BP BP Pulse Ox 04/10/22 07:31 37.2 C 76 16 129/78 96 04/09/22 22:41 37.3 C 85 16 115/74 95 Laboratory Results 04/10/22 04/10/22 04/10/22 Range/Units 05:44 05:44 05:41 WBC 10.50 (4.8-10.8) K/uL RBC 4.93 (4.7-6.1) M/uL Hgb 15.5 (14.0-18.0) g/dL Hct 45.1 (42-52) % MCV 91.5 (80-100) fL MCH 31.4 (25-34) pg MCHC 34.4 (32-36) g/dL RDW Std Deviation 42.2 (36.4-46.3) fL RDW Coeff of Maunel 12.5 (11.5-14.5) % Plt Count 254 (130-400) K/uL MPV 11.7 H (7.4-10.4) fL Sodium 138 (136-145) mmol/L Potassium 4.2 (3.5-5.1) mmol/L Chloride 106 (98-107) mmol/L Carbon Dioxide 25 (21-32) mmol/L Anion Gap 7 (3-11) BUN 18 (6-23) mg/dl Creatinine 1.11 (0.6-1.4) mg/dl Est Cr Clr Drug Dosing 80.8 ml/min Est GFR ( Amer) 86.2 ml/min Est GFR (Non-Af Amer) 74.4 ml/min BUN/Creatinine Ratio 16.2 (10-20) Glucose 98 (70-99(Fasting)) mg/dl Calcium 8.8 (8.5-10.1) mg/dl Phosphorus 3.6 (2.5-4.9) mg/dl Magnesium 2.1 (1.7-2.4) mg/dl Fluid Comment Synovial Source Synovial Color Synovial Appearance Synovial WBC Synovial RBC Synov Polynuclear WBCs Synov Mononuclear WBCs Synovial Other Cells Synovial Polynuclear % Synovial Mononuclear % Vancomycin Trough 7.4 L (10-20) mcg/ml 04/09/22 Range/Units 18:20 WBC (4.8-10.8) K/uL RBC (4.7-6.1) M/uL Hgb (14.0-18.0) g/dL Hct (42-52) % MCV (80-100) fL MCH (25-34) pg MCHC (32-36) g/dL RDW Std Deviation (36.4-46.3) fL RDW Coeff of Manuel (11.5-14.5) % Plt Count (130-400) K/uL MPV (7.4-10.4) fL Sodium (136-145) mmol/L Potassium (3.5-5.1) mmol/L Chloride (98-107) mmol/L Carbon Dioxide (21-32) mmol/L Anion Gap (3-11) BUN (6-23) mg/dl Creatinine (0.6-1.4) mg/dl Est Cr Clr Drug Dosing ml/min Est GFR ( Amer) ml/min Est GFR (Non-Af Amer) ml/min BUN/Creatinine Ratio (10-20) Glucose (70-99(Fasting)) mg/dl Calcium (8.5-10.1) mg/dl Phosphorus (2.5-4.9) mg/dl Magnesium (1.7-2.4) mg/dl Fluid Comment Cancelled Synovial Source Cancelled Synovial Color Cancelled Synovial Appearance Cancelled Synovial WBC Cancelled Synovial RBC Cancelled Synov Polynuclear WBCs Cancelled Synov Mononuclear WBCs Cancelled Synovial Other Cells Cancelled Synovial Polynuclear % Cancelled Synovial Mononuclear % Cancelled Vancomycin Trough (10-20) mcg/ml Medications Administered Current Inpatient Medications Acetaminophen (Acetaminophen 325 Mg Tab) 650 mg PO Q4H PRN PRN Reason: pain/fever Stop: 05/08/22 17:02 Albuterol (Albuterol 0.083% Nebu Soln 3 Ml Vial) 2.5 mg INH Q6H PRN; Protocol PRN Reason: Shortness Of Breath Or Wheezing Stop: 05/08/22 18:16 Ceftriaxone Sodium (Rocephin) 2,000 mg in 70 mls @ 140 mls/hr IV Q24H TORI; Protocol Stop: 04/15/22 13:59 Last Infusion: 04/09/22 15:28 Dose: Infused Documented by: Vancomycin HCl 1,000 mg/ (Sodium Chloride) 270 mls @ 200 mls/hr IV Q8H TORI Stop: 04/17/22 13:59 Lactobacillus Acidophilus (Advanced Probiotic 1250 Mg Capsule) 2 cap PO DAILY TORI Stop: 05/08/22 20:29 Last Admin: 04/09/22 10:22 Dose: 2 cap Documented by: Miscellaneous Information (Vancomycin Consult Active) 1 ea N/A UD PRN PRN Reason: Consult Stop: 05/08/22 16:38 Oxycodone HCl (Oxycodone Hcl Ir 5 Mg Tab (Immediate Release)) 5 mg PO Q4H PRN PRN Reason: Pain Stop: 04/22/22 20:22 Last Admin: 04/09/22 15:35 Dose: 5 mg Documented by:
--- NOTE | 2022-04-10 08:56 | Pharmacy Report ---
Pharmacy PK ABX Note - Date of Service April 10, 2022 - Assessment and Plan Assessment 56 year old M receiving empiric vancomycin and ceftriaxone for treatment of RLL cellulitis/septic prepatellar bursitis of right knee. Pertinent microbiologic data includes: blood cultures x 2 show no growth at 24 hours, right knee aspirate collected yesterday and pending. I&D scheduled for today. Day # 3 of antimicrobial therapy. Plan Vancomycin * Current regimen: 1000 mg IV every 12 hours * Trough level obtained 04/10/22 resulted as 7.4 mcg/mL. This is not predicted to achieve target AUC/MATT of 400-600 mg/L.hr * Change to 1000 mg IV every 8 hours, which is predicted to achieve target AUC/MATT of 400-600 mg/L.hr * Will repeat level in the next 24-48 hours if therapy is continued and/or change in patient clinical status Ceftriaxone * 2 g IV q24h - appropriate, no change Pharmacy will continue to follow and will adjust dose/frequency as necessary. Thank you. Pharmacy has transitioned to AUC monitoring for vancomycin. AUC/MATT is the preferred PK/PD target and is associated with decreased risk of nephrotoxicity compared to traditional trough targets.
[2022-04-10] MEDS: ADVANCED PROBIOTIC 1250 MG CAPSULE PO SCH (08:59)
--- NOTE | 2022-04-10 09:04 | Communication Note ---
Date of Service: April 10, 2022 Pt awake, alert. No new complaints. US negative for DVT. Gram stain showing Gram + cocci. Plan for I&D Right septic prepatellar bursitis today at 1500. Continue NPO status.
[2022-04-10] MEDS: cefTRIAXone SODIUM 2,000 MG/70 ML BAG IV SCH (13:59)
[2022-04-10] MEDS ORDERED: fentaNYL citrate 100 MCG/2 ML VIAL ONE (14:16)
[2022-04-10] MEDS ORDERED: MIDAZOLAM HCL 1 MG/ML 2ML VIAL ONE (14:16)
[2022-04-10] MEDS ORDERED: ATROPINE SULFATE 0.1 MG/ML 10ML SYR IV PRN (14:59)
[2022-04-10] MEDS ORDERED: fentaNYL citrate 100 MCG/2 ML VIAL IV PRN (14:59)
[2022-04-10] MEDS ORDERED: ePHEDrine sulfate 50 MG/ML AMP IV PRN (14:59)
[2022-04-10] MEDS ORDERED: HYDROmorphone INJ 2 MG/ML SYR/VIAL IV PRN (14:59)
[2022-04-10] MEDS ORDERED: ONDANSETRON INJ 2 MG/ML 2 ML VIAL IV PRN (14:59)
--- NOTE | 2022-04-10 14:59 | Anesthesiology Consultation ---
Date of Service April 10, 2022 Assessment & Plan ASA ASA2 Proposed Anesthesia Anesthesia Type: General Risk / Benefits Reviewed With: PT / POA / Parent / Guardian, Accepts Plan and Informed Consent Obtained History Surgery Operation Date: 04/10/22 08:50 Proposed Procedures p Incision and Drainage Right Septic Prepatellar - Karthikeyan Hunter M.D. Height/Weight Height: 5 ft 7 in Weight: 90.8 kg Allergies Allergy/AdvReac Type Severity Reaction Status Date / Time aspirin AdvReac Intermediate BLOODY Verified 04/08/22 15:32 NOSES A CHILD Medications Home Medications Medication Instructions Recorded Confirmed Last Taken albuterol sulfate 2.5 mg INHALATION Q6H PRN 04/08/22 04/08/22 Unknown cephalexin 500 mg capsule 500 mg PO QID 04/08/22 04/08/22 04/08/22 08:00 Active Medications Generic Name Dose Route Start Last Admin Trade Name Freq PRN Reason Stop Dose Admin Ceftriaxone Sodium 2,000 mg in 70 mls @ 140 mls/hr 04/09/22 14:00 04/10/22 13:59 Rocephin IV 04/15/22 13:59 140 mls/hr Q24H TORI Administration Protocol Vancomycin HCl 1,000 mg/ 270 mls @ 200 mls/hr 04/10/22 14:00 04/10/22 14:45 Sodium Chloride IV 04/17/22 13:59 200 mls/hr Q8H TORI Infusion Lactobacillus Acidophilus 2 cap 04/08/22 20:30 04/10/22 08:59 Advanced Probiotic 1250 Mg Capsule PO 05/08/22 20:29 2 cap DAILY TORI Administration Oxycodone HCl 5 mg 04/08/22 20:23 04/09/22 15:35 Oxycodone Hcl Ir 5 Mg Tab (Immediate Release) PO 04/22/22 20:22 5 mg Q4H PRN Administration Pain NPO Date Last Intake of Fluids: 04/09/22 Time Last Intake of Fluids: 22:00 Date Last Intake of Solids: 04/09/22 Time Last Intake of Solids: 22:00 Past Medical History Medical History Chronic allergic rhinitis Exercise / Class Metabolic Activity II 4-5 Yardwork/Stairs/Walk up hill Past Family History Family History Father Diabetes Heart disease Past Surgical History Surgical History H/O vasectomy Past Anesthesia History No Hx of Anesthesia Complications and No Family Hx of Anesthesia Complications History of PONV No Hx of PONV and No Hx of Motion Sickness Social History Smoking Status: Never smoker Hx Alcohol Use: Yes Alcohol type: beer alcohol intake frequency: 3 or more drinks per day Hx Substance Use: No Review of Systems denies fever/cough/ colds/ chest pain/ SOB/ MAGDA denies MAGDA Physical Exam Vital Signs Last Vital Signs Temp 36.9 C 04/10/22 14:46 Pulse 80 04/10/22 14:46 Resp 18 04/10/22 14:46 BP 138/86 04/10/22 14:46 Pulse Ox 98 04/10/22 14:46 ENMT Mouth: no TMJ abnormality and no dentition abnormality Thyromental Distance: > or= 3.5 Finger Breadths Mallampati Class: II Neck neck extension not limited Respiratory normal respiratory effort; no respiratory distress Auscultation: lungs clear to auscultation bilaterally Cardiovascular Rate/Rhythm: regular rate and regular rhythm Neurologic moves all extremities Psychiatric Orientation: alert and oriented x 3 Testing Laboratory Results 04/10/22 05:44 04/10/22 05:44 04/09/22 18:20 Gram Stain - Final Knee,Right Aerobic and Anaerobic Culture - Preliminary Staphylococcus species 04/08/22 14:20 Aerobic Blood Culture - Preliminary Blood No growth in Aerobic bottle after 24 hours. Anaerobic Blood Culture - Preliminary No growth in Anaerobic bottle after 24 hours. 04/08/22 14:26 Aerobic Blood Culture - Preliminary Blood No growth in Aerobic bottle after 24 hours. Anaerobic Blood Culture - Preliminary No growth in Anaerobic bottle after 24 hours.
[2022-04-10] MEDS ORDERED: LIDOCAINE 2% 2 ML VIAL/AMP(20MG/ML) INFIL ONE (17:00)
[2022-04-10] MEDS ORDERED: ONDANSETRON INJ 2 MG/ML 2 ML VIAL ONE (17:00)
[2022-04-10] MEDS ORDERED: DEXAMETHASONE SOD INJ 4 MG/ML VIAL ONE (17:00)
[2022-04-10] MEDS ORDERED: PROPOFOL IV EMULSION 10 MG/ML 20 ML VIAL IV ONE (17:00)
--- NOTE | 2022-04-10 17:01 | History & Physical Bridge Note ---
Date of Service April 10, 2022 History & Physical Bridge Note I have examined the patient, reviewed the History & Physical and in the interval since the performance of the History & Physical I have noted the following changes of clinical significance: History and exam is consistent with a right knee prepatellar bursitis. Inflammatory markers, including ESR and CRP, are elevated. MRI of the knee shows a fluid collection in the prepatellar bursal area, but no obvious knee joint effusion. Fluid aspirate of this prepatellar bursal fluid obtained yesterday is growing Staphylococcus species. Irrigation and debridement of this right knee septic prepatellar bursitis is recommended. Risks, benefits, and al ternatives of surgery were explained in detail. The surgical procedure, as well as postoperative recovery and rehabilitation, was also explained in detail. Risks include bleeding; persistent infection; damage to surrounding structures such as nerves, blood vessels, and tendons that run in the area; persistent pain, weakness, or stiffness; or need for further surgery. The patient understands all of this and wishes to proceed with surgery. Informed consent was obtained.
[2022-04-10] MEDS ORDERED: BUPIVACAINE 0.5 % 5 MG/1 ML MPF 30ML VIAL ONE (17:20)
[2022-04-10] MEDS ORDERED: LIDOCAINE 1% LOCAL 20 ML VIAL ONE (17:20)
--- NOTE | 2022-04-10 18:00 | Post Operative Brief Note ---
Immediate Post Op Note v1 Date of Surgery April 10, 2022 Pre & Post Diagnosis Operation Date: 04/10/22 08:50 Pre-Op Diagnosis: Right knee septic prepatellar bursitis Post-Op Diagnosis: Right knee septic prepatellar bursitis I identified the patient and participated in the time-out.: Yes Procedure Operation Date: 04/10/22 08:50 Actual Procedures p Incision and Drainage Right Knee Septic Prepatellar(Right) - Karthikeyan Hunter M.D. Surgeon Karthikeyan Hunter Etcher Electrolytic None Estimated Blood Loss 3 Findings Consistent with Post-Op Diagnosis Drains Hemovac Drain
--- NOTE | 2022-04-10 18:02 | Operative Report ---
Post Operative Report Pre & Post Diagnosis Operation Date: 04/10/22 08:50 Pre-Op Diagnosis: Right knee septic prepatellar bursitis Post-Op Diagnosis: Right knee septic prepatellar bursitis I identified the patient and participated in the time-out.: Yes Procedure Operation Date: 04/10/22 08:50 Actual Procedures Right knee irrigation and debridement of septic prepatellar bursitis - Karthikeyan Hunter M.D. Surgeon Karthikeyan Hunter Clerical Office None Estimated Blood Loss 3 Findings Consistent with Post-Op Diagnosis Specimens Culture swab Drains Hemovac Anesthesia Type General Complications none Disposition Disposition: Recovery Room Indications Mr. Javed is a 56-year-old male with pain and swelling in the anterior aspect of his right knee. History, clinical exam, and imaging were consistent with the above diagnosis. Risks, benefits, and alternatives of surgery were explained in detail. The patient understood all this and wished to proceed. Description of Procedure Patient was identified in the preoperative holding area. Operative extremity was marked. Patient was then brought back to the operating room, and general anesthesia was induced without complication. Tourniquet was placed on the right thigh. The leg was then prepped and draped in a standard sterile fashion using Chlorhexidine prep. The leg was then exsanguinated with an Esmarch, and the tourniquet was inflated. I made a longitudinal incision over the anterior aspect of the knee, directly over the area of maximal swelling and fluctuance. Immediately upon incising skin and subcutaneous tissue, I encountered a pocket of purulent fluid in the prepatellar bursal area. A sample of this fluid was obtained on culture swab and sent for Gram stain, aerobic culture, and anaerobic culture. I then aggressively but carefully debrided the entire abscess cavity in the prepatellar bursal area with curette and rongeur. All infectious-appearing fibrinous tissue was aggressively debrided. There was no obvious violation of the deep fascia or knee joint capsule. Total area of the debridement was approximately 5-6 cm in diameter. After thorough debridement was complete, I then copiously irrigated the wound with sterile saline via gravity irrigation. I then placed a Hemovac drain within the decompressed abscess cavity. Drain tube was sewn in place at the skin. Skin was closed with 3-0 Prolene. I then anesthetized the wound bed with a 50/50 mixture of 1% lidocaine and 0.5% Marcaine without epinephrine. Sterile dressings were then applied with Xeroform, sterile gauze, sterile Webril, and Enrique wrap. The drapes were removed, the patient was awakened from anesthesia, and taken to the Post Anesthesia Care Unit in stable condition. There were no immediate complications from the procedure. I was present and scrubbed for the entire procedure. I attest to the content of the Intraoperative Record and any orders documented therein. Any exceptions are noted below.
--- NOTE | 2022-04-10 18:54 | Anesthesiology Progress Note ---
Date of Service April 10, 2022 Anesthesia Post Procedure Vital Signs Vital Signs: Temp Pulse Pulse Resp BP BP Pulse Ox 04/10/22 18:45 87 17 128/84 95 04/10/22 18:35 36.3 C L 87 20 123/87 94 04/10/22 18:25 90 14 126/90 92 04/10/22 18:15 88 15 122/88 97 04/10/22 18:05 36.6 C 92 H 14 121/83 93 04/10/22 14:46 36.9 C 80 18 138/86 98 04/10/22 07:31 37.2 C 76 16 129/78 96 04/09/22 22:41 37.3 C 85 16 115/74 95 Pain Intensity Right Leg: Pain Intensity: 3 Transfer of Care Handoff Completed per policy Notes Mental Status: alert / awake / arousable and participated in evaluation Patient Amnestic to Procedure: Yes Nausea / Vomiting: adequately controlled Pain: adequately controlled Airway Patency, RR, SpO2: stable & adequate BP & HR: stable & adequate Hydration State: stable & adequate Anesthetic Complications: no major complications apparent and Pt Satisfied with anesthetic care
[2022-04-10] MEDS: oxyCODONE HCL IR 5 MG TAB (IMMEDIATE RELEASE) PO PRN (19:53)
[2022-04-11] MEDS: VANCOMYCIN HCL 1,000 MG in SODIUM CHLORIDE 0.9% 250 ML IV SCH ×3 (05:31→22:02)
[2022-04-11] MEDS: oxyCODONE HCL IR 5 MG TAB (IMMEDIATE RELEASE) PO PRN ×5 (05:35→22:02)
[2022-04-11 06:23] LABS: Hematocrit (blood only) 42.8 % (42-52); Mean Corpuscular Hemoglobin 31.9 pg (25-34); Mean Corpuscular Volume 91.1 fL (80-100); Mean Platelet Volume 11.1 fL (7.4-10.4); Platelet Count 274 K/uL (130-400); RDW Coefficient of Variation 11.9 % (11.5-14.5); RDW Standard Deviation 40.2 fL (36.4-46.3); White Blood Count 7.29 K/uL (4.8-10.8)
[2022-04-11 06:38] LABS: BUN Creatinine Ratio 17.9 (10-20); Calcium 8.8 mg/dl (8.5-10.1); Creatinine Clr Calc Pharmacy 94.4 ml/min; Est GFR (Non-African American) 89.8 ml/min; Potassium 4.5 mmol/L (3.5-5.1)
[2022-04-11] MEDS: ADVANCED PROBIOTIC 1250 MG CAPSULE PO SCH (08:00)
[2022-04-11] MEDS: cefTRIAXone SODIUM 2,000 MG/70 ML BAG IV SCH (13:59)
--- NOTE | 2022-04-11 17:03 | Orthopedic Progress Note ---
Date of Service April 11, 2022 Assessment & Plan (1) Septic prepatellar bursitis of right knee: Plan: Postop day 1 status post I&D right septic prepatellar bursa. Culture showing MRSA from aspirate. Patient currently on vancomycin 3 times daily. Continue daily dressing changes. Elevation to right lower extremity. Continue ice over the right knee. We will add Toradol to his pain regimen. Admission and Anticipated Discharge Date Admission Date: April 10, 2022 Supervising Physician Co-Signing Physician Notes Patient seen and examined. Agree with VINCENT Monzon's note as above. He notes discomfort in his knee, but different than the pain he is feeling prior to surgery. He is ambulating without assistance. Cultures showing MRSA, currently receiving vancomycin. Subjective Postop day 1 Patient sitting in bed awake and alert. Having some more pain today. No other complaints. Physical Exam Physical Exam: Dressings are clean, dry, and intact. Calves are soft non tender. Neurovascular is intact. Toes are mobile. Hemovac is present but not draining anything. Dressings were removed and Hemovac was taken out. Incision is well approximated. Mild swelling noted. He has a little bit less erythema today. Wound is redressed. Results & Data ([facility]) Vital Signs (Past 12 Hours) Vital Signs Temp Pulse Resp BP BP Pulse Ox 04/11/22 15:56 36.8 C 79 16 125/82 93 04/11/22 07:35 36.5 C 70 16 137/90 95 Laboratory Results 04/11/22 04/11/22 Range/Units 05:44 05:44 WBC 7.29 (4.8-10.8) K/uL RBC 4.70 (4.7-6.1) M/uL Hgb 15.0 (14.0-18.0) g/dL Hct 42.8 (42-52) % MCV 91.1 (80-100) fL MCH 31.9 (25-34) pg MCHC 35.0 (32-36) g/dL RDW Std Deviation 40.2 (36.4-46.3) fL RDW Coeff of Manuel 11.9 (11.5-14.5) % Plt Count 274 (130-400) K/uL MPV 11.1 H (7.4-10.4) fL Sodium 137 (136-145) mmol/L Potassium 4.5 (3.5-5.1) mmol/L Chloride 105 (98-107) mmol/L Carbon Dioxide 27 (21-32) mmol/L Anion Gap 5 (3-11) BUN 17 (6-23) mg/dl Creatinine 0.95 (0.6-1.4) mg/dl Est Cr Clr Drug Dosing 94.4 ml/min Est GFR ( Amer) 104.0 ml/min Est GFR (Non-Af Amer) 89.8 ml/min BUN/Creatinine Ratio 17.9 (10-20) Glucose 157 H (70-99(Fasting)) mg/dl Calcium 8.8 (8.5-10.1) mg/dl
[2022-04-11] MEDS: KETOROLAC TROMETHAMINE 15 MG/ML VIAL IV SCH ×2 (17:44→23:56)
--- NOTE | 2022-04-11 19:06 | Hospitalist Progress Note ---
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 Degeneration of the menisci with equivocal medial meniscal tear. No acute ligamentous injury. Nonspecific diffuse subcutaneous edema may represent cellulitis, venous stasis or lymphedema. Prepatellar fluid collection measuring up to 4.6 cm is suggestive of bursitis. Sterility cannot be determined by imaging alone. --Venous Doppler:There is no sonographic evidence of deep venous thrombosis identified in the right lower extremity. Prominent right inguinal lymph nodes are nonspecific and may be reactive. Clinical correlation will be required. --S/P I&D Wound Cx: MRSA--Preliminary Continue vancomycin, Rocephin De-escalate antibiotics as able Appreciate orthopedics input Continue wound care PT OT Pain control Diarrhea Likely due to antibiotics Stool Studies negative Continue probiotics Code Status Full Code (3) Septic prepatellar bursitis of right knee: Admission and Anticipated Discharge Date Admission Date: April 10, 2022 Subjective Patient is seen and examined at bedside States having right knee pain at surgical site during ambulation predominantly Denies any chest pain, shortness of breath, dizziness, nausea, abdominal pain Offers no other complaints Review of Systems Review of Systems: All systems reviewed & are unremarkable except as noted in Subjective Physical Exam Physical Exam: Physical Exam: Vitals signs as noted above General Appearance:Moderately built and nourished, no apparent distress Head: normocephalic, Atraumatic Eyes: normal inspection, EOMI Neck: supple, Trachea midline Respiratory/Chest: Normal breath sounds, CTA, No accessory muscle use Cardiovascular: S1, S2, No murmur Abdomen/GI:Soft, Non tender, Bowel sounds present Extremities/Musculoskeletal:R knee in dressing, +drain, no edema Neurologic/Psych:AAOX3, grossly no focal neurological deficits Skin: normal color, warm Results & Data Results & Data ([facility]) Vital Signs (Past 12 Hours) Vital Signs Temp Pulse Resp BP BP Pulse Ox 04/11/22 15:56 36.8 C 79 16 125/82 93 04/11/22 07:35 36.5 C 70 16 137/90 95 Laboratory Results Short CBC 04/11/22 Range/Units 05:44 WBC 7.29 (4.8-10.8) K/uL Hgb 15.0 (14.0-18.0) g/dL Hct 42.8 (42-52) % Plt Count 274 (130-400) K/uL [facility] 04/11/22 05:44 Sodium 137 Potassium 4.5 Chloride 105 Carbon Dioxide 27 BUN 17 Creatinine 0.95 Glucose 157 H Calcium 8.8
[2022-04-12] MEDS: oxyCODONE HCL IR 5 MG TAB (IMMEDIATE RELEASE) PO PRN ×6 (01:33→22:55)
[2022-04-12] MEDS ORDERED: VANCOMYCIN LEVEL ONE (05:30)
[2022-04-12] MEDS: KETOROLAC TROMETHAMINE 15 MG/ML VIAL IV SCH ×3 (05:49→17:50)
[2022-04-12 06:24] LABS: Hematocrit (blood only) 44.1 % (42-52); Hemoglobin 15.1 g/dL (14.0-18.0); Mean Corpuscular Hemoglobin 31.8 pg (25-34); Mean Corpuscular Hgb Conc 34.2 g/dL (32-36); Mean Corpuscular Volume 92.8 fL (80-100); Platelet Count 290 K/uL (130-400); RDW Coefficient of Variation 12.3 % (11.5-14.5); RDW Standard Deviation 41.6 fL (36.4-46.3); Red Blood Count 4.75 M/uL (4.7-6.1); White Blood Count 8.86 K/uL (4.8-10.8)
[2022-04-12 06:47] LABS: BUN Creatinine Ratio 17.4 (10-20); Calcium 8.6 mg/dl (8.5-10.1); Creatinine Clr Calc Pharmacy 82.3 ml/min; Est GFR (African American) 88.1 ml/min; Potassium 4.1 mmol/L (3.5-5.1)
[2022-04-12] MEDS: VANCOMYCIN HCL 1,000 MG in SODIUM CHLORIDE 0.9% 250 ML IV SCH ×2 (07:04→13:24)
[2022-04-12] MEDS: LACTOBACILLUS ACIDOPHILUS 1 GM PACK PO SCH ×2 (08:01→11:15)
--- NOTE | 2022-04-12 09:22 | Pharmacy Report ---
Pharmacy PK ABX Note - Date of Service April 12, 2022 - Assessment and Plan Assessment 56 year old M receiving empiric vancomycin and ceftriaxone for treatment of RLL cellulitis/septic prepatellar bursitis of right knee. Pertinent microbiologic data includes: blood cultures x 2 show no growth at 48 hours, right knee (04/09) growing MRSA, knee culture (04/10) growing Staphylococcus species Day # 5 of antimicrobial therapy. Ceftriaxone discontinued today in light of culture data. Several PO options available based on sensitivities. Plan is to continue IV therapy for now. Plan Vancomycin * Current regimen: 1000 mg IV every 8 hours * Trough level obtained 04/12/22 resulted as 12.9 mcg/mL. This is predicted to achieve target AUC/MATT of 400-600 mg/L.hr * Predicted AUC at steady state: 518 mg/L.hr * Continue 1000 mg IV every 8 hours * Will repeat level in the next 48-72 hours if therapy is continued and/or change in patient clinical status Pharmacy will continue to follow and will adjust dose/frequency as necessary. Thank you. Pharmacy has transitioned to AUC monitoring for vancomycin. AUC/MATT is the preferred PK/PD target and is associated with decreased risk of nephrotoxicity compared to traditional trough targets.
[2022-04-12] MEDS: ADVANCED PROBIOTIC 1250 MG CAPSULE PO SCH (11:34)
--- NOTE | 2022-04-12 14:15 | Orthopedic Progress Note ---
Date of Service April 12, 2022 Assessment & Plan (1) Septic prepatellar bursitis of right knee: Plan: Postop day 2 status post I&D right septic prepatellar bursa. Culture showing MRSA from aspirate. Patient changed to daptomycin for once daily dosing. Planning for home IVs with plan for PICC line. Continue daily dressing changes. Elevation to right lower extremity. Continue ice over the right knee. No need for 2nd I&D at this time. Planning for dc to home tomorrow. Admission and Anticipated Discharge Date Admission Date: April 10, 2022 Subjective Postop day 2 Patient lying in bed awake and alert. No complaints this afternoon. States that he heard from medicine service and that he will require a PICC line and 4 weeks of IV antibiotics. If currently switched him from vancomycin to daptomycin. Physical Exam Physical Exam: Dressings removed. Minimal drainage on the dressing. His erythema is resolving nicely. He continues to have some mild swelling noted around the knee itself. Range of motion is continuing to remain intact. Calves are soft and nontender. Neurovascular is intact. Toes are mobile. Wound redressed. Results & Data ([facility]) Vital Signs (Past 12 Hours) Vital Signs Temp Pulse Resp BP Pulse Ox 04/12/22 07:37 36.7 C 70 16 130/91 96
[2022-04-12] MEDS ORDERED: FAMOTIDINE 20 MG TAB PO PRN (18:24)
[2022-04-12] MEDS ORDERED: ALUMINUM/MAGNESIUM/SIMETH (MAALOX MAX) 30 ML UDC PO PRN (18:24)
--- NOTE | 2022-04-12 18:26 | Hospitalist Progress Note ---
Date of Service April 12, 2022 Assessment & Plan (1) Cellulitis of right lower extremity: (2) Pain and swelling of right knee: Plan: Septic prepatellar bursitis of right knee --MRI Knee:Minimal tricompartmental osteoarthritis with low to intermediate grad e chondromalacia of the lateral compartment. Degeneration of the menisci with equivocal medial meniscal tear. No acute ligamentous injury. Nonspecific diffuse subcutaneous edema may represent cellulitis, venous stasis or lymphedema. Prepatellar fluid collection measuring up to 4.6 cm is suggestive of bursitis. Sterility cannot be determined by imaging alone. --Venous Doppler:There is no sonographic evidence of deep venous thrombosis identified in the right lower extremity. Prominent right inguinal lymph nodes are nonspecific and may be reactive. Clinical correlation will be required. --S/P I&D Wound Cx: MRSA--Preliminary Continue vancomycin, Rocephin>>Changed to Daptomycin Appreciate orthopedics/ID input Continue wound care PT OT Pain control Needs 4 weeks of IV Antibiotics Check CK levels tomorrow Needs Weekly CBC, CMP, CK while on Daptomycin Dysphagia Chest Discomfort ? GERD Hold Toradol Added Pepcid Obtain EKG Speech Eval Diarrhea Likely due to antibiotics Stool Studies negative Continue probiotics Improving Code Status Full Code (3) Septic prepatellar bursitis of right knee: Admission and Anticipated Discharge Date Admission Date: April 10, 2022 Subjective Patient is seen and examined at bedside Still has some pain at Surgical site Reports chest discomfort to RN today after receiving Toradol Denies any chest pain, dizziness, nausea, abdominal pain Diarrhea improving Offers no other complaints Review of Systems Review of Systems: All systems reviewed & are unremarkable except as noted in Subjective Physical Exam Physical Exam: Physical Exam: Vitals signs as noted above General Appearance:Moderately built and nourished, no apparent distress Head: normocephalic, Atraumatic Eyes: normal inspection, EOMI Neck: supple, Trachea midline Respiratory/Chest: Normal breath sounds, CTA, No accessory muscle use Cardiovascular: S1, S2, No murmur Abdomen/GI:Soft, Non tender, Bowel sounds present Extremities/Musculoskeletal:R knee in dressing, +drain, no edema Neurologic/Psych:AAOX3, grossly no focal neurological deficits Skin: normal color, warm Results & Data Results & Data ([facility]) Vital Signs (Past 12 Hours) Vital Signs Temp Pulse Pulse Resp BP BP Pulse Ox 04/12/22 18:18 61 128/84 96 04/12/22 14:42 36.9 C 86 18 118/76 96 04/12/22 07:37 36.7 C 70 16 130/91 96 Laboratory Results Short CBC 04/12/22 Range/Units 05:45 WBC 8.86 (4.8-10.8) K/uL Hgb 15.1 (14.0-18.0) g/dL Hct 44.1 (42-52) % Plt Count 290 (130-400) K/uL BMP 04/12/22 05:45 Sodium 140 Potassium 4.1 Chloride 105 Carbon Dioxide 28 BUN 19 Creatinine 1.09 Glucose 89 Calcium 8.6
[2022-04-12] MEDS ORDERED: FAMOTIDINE 20 MG in SYRINGE 3 ML IV ONE (18:30)
--- NOTE | 2022-04-12 18:53 | XRay Report ---
XR chest 1V portable CLINICAL HISTORY: PICC line TECHNIQUE: Single frontal radiograph of the chest was obtained. Comparison: None available at the time of this dictation. FINDINGS: Right PICC catheter tip is in the mid SVC. The cardiomediastinal silhouette is normal. Prominence and cephalization of the vasculature is seen. No evidence of pleural effusion or pneumothorax. IMPRESSION: No acute chest disease. ACT 112: Negative or not required by law. Electronically signed by: Juan J Ansari M.D. 04/12/2022 6:51 PM
[2022-04-12] MEDS: ACETAMINOPHEN 325 MG TAB PO PRN (22:56)
[2022-04-13] MEDS: ACETAMINOPHEN 325 MG TAB PO PRN (03:04)
[2022-04-13] MEDS: oxyCODONE HCL IR 5 MG TAB (IMMEDIATE RELEASE) PO PRN ×3 (03:04→12:08)
[2022-04-13] MEDS: ADVANCED PROBIOTIC 1250 MG CAPSULE PO SCH (07:12)
[2022-04-13] MEDS ORDERED: DAPTOmycin 500 MG in SYRINGE 0 ML IV SCH (09:00)
[2022-04-13] MEDS ORDERED: DAPTOmycin 300 MG in SYRINGE 0 ML IV SCH (09:00)
--- NOTE | 2022-04-13 09:12 | Electrocardiogram Report ---
Test Reason : Blood Pressure : / mmHG Vent. Rate : 071 BPM Atrial Rate : 071 BPM P-R Int : 124 ms QRS Dur : 084 ms QT Int : 402 ms P-R-T Axes : 053 073 075 degrees QTc Int : 436 ms Normal sinus rhythm Normal ECG No previous ECGs available Confirmed by Shashi Miller ([id number]) on 04/13/2022 9:11:55 AM Referred By: REFERRED SELF Confirmed By:Shashi Miller
--- NOTE | 2022-04-13 11:54 | Hospitalist Progress Note ---
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 Degeneration of the menisci with equivocal medial meniscal tear. No acute ligamentous injury. Nonspecific diffuse subcutaneous edema may represent cellulitis, venous stasis or lymphedema. Prepatellar fluid collection measuring up to 4.6 cm is suggestive of bursitis. Sterility cannot be determined by imaging alone. --Venous Doppler:There is no sonographic evidence of deep venous thrombosis identified in the right lower extremity. Prominent right inguinal lymph nodes are nonspecific and may be reactive. Clinical correlation will be required. --S/P I&D Wound Cx: MRSA--Preliminary Continue vancomycin, Rocephin>>Changed to Daptomycin Appreciate orthopedics/ID input Continue wound care PT OT Pain control Needs 4 weeks of IV Daptomycin Needs Weekly CBC, CMP, CK while on Daptomycin Needs follow up with Orthopedics upon discharge Dysphagia Chest Discomfort Likely GERD, Anxiety Noted the discomfort after Toradol use No trouble with food intake today EKG showed no sign of ischemia CXR:No acute chest disease. Continue Pepcid Speech Eval requested Advised to follow up with Cardiology if his symptoms re-occur/worsen Diarrhea Likely due to antibiotics Stool Studies negative Continue probiotics Had Soft BMs today Code Status Full Code (3) Septic prepatellar bursitis of right knee: Admission and Anticipated Discharge Date Admission Date: April 10, 2022 Subjective Patient is seen and examined at bedside Right knee pain is controlled Chest discomfort much improved as well Denies any dyspnea, dizziness, nausea, abd pain Review of Systems Review of Systems: All systems reviewed & are unremarkable except as noted in Subjective Physical Exam Physical Exam: Physical Exam: Vitals signs as noted above General Appearance:Moderately built and nourished, no apparent distress Head: normocephalic, Atraumatic Eyes: normal inspection, EOMI Neck: supple, Trachea midline Respiratory/Chest: Normal breath sounds, CTA, No accessory muscle use Cardiovascular: S1, S2, No murmur Abdomen/GI:Soft, Non tender, Bowel sounds present Extremities/Musculoskeletal:R knee in dressing, +drain, no edema Neurologic/Psych:AAOX3, grossly no focal neurological deficits Skin: normal color, warm Results & Data Results & Data ([facility]) Vital Signs (Past 12 Hours) Vital Signs Temp Pulse Resp BP Pulse Ox 04/13/22 07:12 36.6 C 71 18 119/76 94 Laboratory Results Cardiac Enzymes 04/13/22 Range/Units 07:25 Total Creatine Kinase 55 (30-223) U/L
--- NOTE | 2022-04-13 12:06 | Discharge Summary ---
Date of Service April 13, 2022 Admission HPI Per Admitting Provider 56-year-old male, with history of chronic rhinitis, who presents with painful, red and swollen right knee. Patient reports having pain in his right knee for about a week, yesterday however he also noted redness. He also noted that he could not really extend his knee joint and had to limp when walking. Ambulation and moving his knee was somewhat painful. Therefore he presented to [facility]. There, they wanted to rule out septic arthritis and attempted arthrocentesis several times. Despite multiple attempts, they were not successful, and tap was dry. He was then discharged with p.o. Keflex. Unfortunately, despite taking Keflex, redness now extended up his inner thigh and down to his ankle. He continues to have pain, difficulty ambulating, and bearing weight. He reports feeling cold for past 2 days, however did not check his temperature at home. Denies any chest pain, shortness of breath, abdominal pain, nausea or vomiting. However he does report having diarrhea before he presented in [facility] (prior to starting p.o. Keflex). X-ray was repeated in the ED, which did not show any acute fracture, or joint effusion. It does show soft tissue swelling. In the ED, patient received 2000 mg of ceftriaxone and vancomycin. Admission Exam Per Admitting Provider Physical Exam Constitutional: WD/WN, vitals as above Eyes: PERRL, conjunctivae normal, anicteric sclerae ENMT: external ear and nose normal, oropharynx normal Neck: normal visual inspection Respiratory: normal respiratory effort, lungs clear to auscultation Cardiovascular: RRR, no murmur, no edema Chest (Breasts): Chest: normal inspection of chest Gastrointestinal (Abdomen): normal bowel sounds, soft, nontender, no hepatosplenomegaly Musculoskeletal: Head/Neck/Chest: normocephalic, head atraumatic and neck supple Extremities: extremities normal to inspection (L normal, R - R knee edematous, erythematous, warm tender to palpation) Skin: no rashes, warm and dry (erythema of R inner leg and above patella) Neurologic: PERRL, EOMI, accommodation nl, no face palsy, no dysarthria Psychiatric: A+Ox3, euthymic affect Principal Diagnosis Septic prepatellar bursitis of right knee Discharge Data Allergies Allergy/AdvReac Type Severity Reaction Status Date / Time aspirin AdvReac Intermediate BLOODY Verified 04/08/22 15:32 NOSES A CHILD Consultations 04/08/22 16:42 ED Decision to Admit Stat 04/08/22 18:53 Consult Orthopedic Surgery Routine 04/11/22 12:52 Consult Infectious Diseases Routine Procedures Performed Operation Date: 04/10/22 08:50 Actual Procedures p Incision and Drainage Right Knee Septic Prepatellar(Right) - Karthikeyan Prasad M.D. 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 Degeneration of the menisci with equivocal medial meniscal tear. No acute ligamentous injury. Nonspecific diffuse subcutaneous edema may represent cellulitis, venous stasis or lymphedema. Prepatellar fluid collection measuring up to 4.6 cm is suggestive of bursitis. Sterility cannot be determined by imaging alone. --Venous Doppler:There is no sonographic evidence of deep venous thrombosis identified in the right lower extremity. Prominent right inguinal lymph nodes are nonspecific and may be reactive. Clinical correlation will be required. --S/P I&D Wound Cx: MRSA--Preliminary Continue vancomycin, Rocephin>>Changed to Daptomycin Appreciate orthopedics/ID input Continue wound care PT OT Pain control Needs 4 weeks of IV Daptomycin Needs Weekly CBC, CMP, CK while on Daptomycin Needs follow up with Orthopedics upon discharge Dysphagia Chest Discomfort Likely GERD, Anxiety Noted the discomfort after Toradol use No trouble with food intake today EKG showed no sign of ischemia CXR:No acute chest disease. Continue Pepcid Speech Eval requested Advised to follow up with Cardiology if his symptoms re-occur/worsen Diarrhea Likely due to antibiotics Stool Studies negative Continue probiotics Had Soft BMs today Code Status Full Code (3) Septic prepatellar bursitis of right knee: Total Time Total Time Spent Total Time Spent (In Minutes): 45 minutes Discharge Plan Discharge Items Patient Disposition: Home - Home Health Services Reason For Visit: CELLULITIS Discharge Diagnosis: Septic prepatellar bursitis of right knee Activity: Per Instructions section Weightbearing: Right weightbearing Weightbearing Comment: as tolerated Non-emergency contact: Primary Care Provider and Surgeon Call non-emergency contact if: your pain is not controlled, your temperature is above 101.5, your wound has increased redness and your wound has increased dr salcido Follow-up/Referrals: Vinh Skinner DO [Primary Care Provider] - (Date & Time 04/19/2022 3:00 PM Provider [facility] ) Karthikeyan Prasad M.D. [Physician] - (Follow up with Dr. Prasad in 10-14 days from the day of your surgery for your first post operative visit. Please call for an appointment if one has not been made for you. ) Diet: Regular Add Attending Provider Instructions: Follow up with your primary care physician on 04/19/2022 3:00 PM Follow-up with your orthopedic surgeon as instructed. --Complete the antibiotic course IV daptomycin for 4 weeks as recommended by your infectious disease. --Get weekly CBC, CMP,--CK blood test while on IV antibiotics and follow-up with your physician. --- Your final wound and Blood cultures are pending at the time of discharge. Follow-up with your physician for results. --Consider following with your news wire photo operator if your chest pain recurs or worsens. Seek immediate medical attention if your symptoms reoccur or worsen Please take all medications as instructed on discharge list below. Please call if you have any questions or problems. You can reach a [facility] hospitalist on duty at [facility] 24 hours a day by calling [phone] [facility] Radiographer Mammographer Provider Instructions: DAILY DRESSING CHANGES; KEEP DRESSINGS CLEAN AND DRY. KEEP YOUR WOUND COVERED UNTIL SEEN AT YOUR FIRST RETURN VISIT TO THE OFFICE. YOU MAY SHOWER. NO TUB BATH'S. DO NOT SOAK THE WOUND. DO NOT SCRUB THE WOUND. CLEAN AROUND THE WOUND WITH MILD SOAP. PAT DRY AND COVER. CALL THE OFFICE IF YOU HAVE A FEVER OF 101.5 OR GREATER; INCREASED PAIN, SWELLING, OR REDNESS OF YOUR WOUND. [phone] PRASAD IN 10-14 DAYS FROM THE DAY OF YOUR SURGERY. [phone] Pending Studies at Discharge: Yes Studies:: Blood/Wound Culture Stand-Alone Forms: My [facility], Smoking Cessation Medications and DC Order Prescriptions: New oxycodone 5 mg Tablet 5 mg PO Q8H PRN (Reason: pain) Qty: 10 RF: 0 famotidine 20 mg Tablet 20 mg PO BID PRN (Reason: heartburn) Qty: 30 RF: 0 Advanced Probiotic 625 mg (10 billion cell) Capsule 2 cap PO DAILY Qty: 60 RF: 0 daptomycin 500 mg recon soln 500 mg IV DAILY 28 Days Qty: 1 RF: 0 Continued albuterol sulfate 2.5 mg /3 mL (0.083 %) solution for nebulization 2.5 mg inhalation Q6H PRN (Reason: Shortness Of Breath Or Wheezing) RF: 0 Discontinued cephalexin 500 mg capsule 500 mg PO QID RF: 0 Discharge Orders: Discharge Order (Routine); Ordered 04/13/22 Ordered By: Louis Roy Admission Data Admit Date/Time: 04/10/22 07:44 Attending Provider: Louis Roy Admit Provider: Kyrie De Jesus Primary Care Provider: Vinh Skinner V. Other Providers: Kyrie De Jesus ; Fco Pickens ; Bharat Monterroso ; Adolph Monzon ; Livia Ribera Thomas J ; Sabina Patel ; Matty Pedersen ; Ari Conley ; Jason Barnhart Andrew J. ; Robbie Rogers ; Mayur Bearden ; Mani Saleem ; Jeffery Flynn ; Sabina Vasquez Scott A ; Danna Root ; Sudhir Royal ; Ilene Trejo ; Jayden Gillespie ; Harpal Beatty ; Prashant Casillas ; Yadiel Landrum I. ; Bertram Salazar II ; Ruby Stern ; Jason Zendejas ; Hao Baca ; [facility]
--- NOTE | 2022-04-17 11:23 | Coding Query ---
DEBRIDEMENT DOCUMENTATION To promote full compliance with coding requirements relating to patient care, physician participation is requested in all cases of shuttlecock assembler uncertainty. Please assist us with the question(s) below: Please place an X in the parenthesis (x). If other, please document the finding: Type of Debridement: ( X ) Excisional Debridement- Cutting away necrotic, devitalized tissue or slough to the level of viable tissue using a sharp instrument (i.e. scalpel, scissors, etc.) ( ) Non Excisional Debridement- The removal of necrotic, devitalized tissue or slough by means of scraping, mechanical brushing, flushing, or washing (i.e. irrigation,whirlpool);minor removal of loose fragments. ( ) Other (please specify): Instrument Used: ( X ) Scissors ( X ) Scalpel ( X ) Curette ( X ) Other (please specify): Ronguer Depth of Debridement: ( ) Skin ( X ) Skin and Subcutaneous Tissue ( ) Skin, Subcutaneous Tissue and Muscle ( ) Skin, Subcutaneous Tissue, Muscle and Bone ( ) Other (please specify): Please Specify the Size of Debridement in cm2: Thank you Jamie DUFF
== END 2022-04-13 13:27 | disposition home health service (06) | DRG 464 ==
LOC: 3E 13:20 → ED 13:20 → 3E 17:53 → SUATTDRO 04-10 07:44